=== PATIENT | male | born 1960 | race Caucasian/White ===

== ENCOUNTER 2020-11-21 18:00 | Inpatient (IN) ==
[2020-11-21] MEDS ORDERED: SODIUM CHLORIDE 0.9% 1000ML 1,000 ML IV SCH (19:00)
[2020-11-21 19:16] LABS: Basophils # (auto) 0.03 K/uL (0-0.2); Basophils % (auto) 0.3 %; Eosinophils # (auto) 0.07 K/uL (0-0.5); Eosinophils % (auto) 0.6 %; Hematocrit (blood only) 46.5 % (42-52); Hemoglobin 15.1 g/dL (14.0-18.0); Immature Granulocytes # (auto) 0.05 K/uL (0.00-0.02); Immature Granulocytes % (auto) 0.4 %; Lymphocytes # (auto) 2.03 K/uL (1.2-3.4); Lymphocytes % (auto) 17.9 %; Mean Corpuscular Hemoglobin 31.1 pg (25-34); Mean Corpuscular Hgb Conc 32.5 g/dL (32-36); Mean Corpuscular Volume 95.7 fL (80-100); Mean Platelet Volume 11.5 fL (7.4-10.4); Monocytes # (auto) 1.02 K/uL (0.11-0.59); Neutrophils # (auto) 8.16 K/uL (1.4-6.5); Neutrophils % (auto) 71.8 %; Platelet Count 385 K/uL (130-400); RDW Standard Deviation 49.7 fL (36.4-46.3); Red Blood Count 4.86 M/uL (4.7-6.1); White Blood Count 11.36 K/uL (4.8-10.8)
[2020-11-21] MEDS ORDERED: cefTRIAXone SODIUM 1,000 MG/50 ML BAG IV STA (19:18)
[2020-11-21] MEDS ORDERED: AZITHROMYCIN 500 MG in DEXTROSE 5% 250 ML IV STA (19:18)
--- NOTE | 2020-11-21 19:18 | Emergency Department Note ---
History of Present Illness General Chief complaint: Cough Stated complaint: COUGH, WEAK Time Seen by Provider: 11/21/20 18:41 History of Present Illness Maximum Pain Intensity: 7 60-year-old male presents to the ED with a chief complaint of a cough as well as some weakness and shortness of breath. He has had the symptoms for the past 10 or 11 days. He reports a dry cough. His symptoms are worse with exertion. He has not had any fevers. No nausea or vomiting. No specific contacts from Covid. Not vaccinated with Covid vaccine. Home Medications Medication Instructions Recorded Confirmed Type Aspirin (Aspirin *) 325 mg PO DAILY #0 08/21/09 History Cyanocobalamin (Vitamin B-12) 1,000 mcg PO DAILY #0 08/21/09 History Naproxen (Naprosyn) 500 mg PO BID #0 08/21/09 History OMEPRAZOLE (PRILOSEC) 20 mg PO DAILY #0 08/21/09 History Simvastatin (Zocor) 80 mg PO QPM #0 08/21/09 History ACETAMIN/ASA/CAFF 2 tabs PO Q6HR PRN #0 03/12/12 History DIVALPROEX SODIUM (Depakote 1,000 mg PO BID #0 tab 03/12/12 History Etended-Release) FLUOXETINE HCL (PROZAC) 40 mg PO BID #0 cap 03/12/12 History Allergies Allergy/AdvReac Type Severity Reaction Status Date / Time Sulfa (Sulfonamide Allergy Intermediate RASH Unverified 09/02/09 15:45 Antibiotics) Penicillins Allergy . Unverified 09/02/09 15:45 Past Med/Surg History Social History Smoking Status: Former smoker Tobacco Type: Cigarettes Feels Safe at Home: Yes Review of Systems A total of 10 systems reviewed and were otherwise negative Physical Exam Vital Signs Vital Signs - 24 hr 11/21/20 18:22 11/21/20 18:29 11/21/20 18:30 Temperature 36.8 C Temperature Source Temporal Artery Scan Pulse Rate 92 H Respiratory Rate 20 Blood Pressure 109/70 Blood Pressure Mean 83 Pulse Oximetry 84 L 89 L Oxygen Delivery Method Room Air Nasal Cannula Nasal Cannula Oxygen Flow Rate 3 4 Sepsis Recent Fever Within 48 Hours No Sepsis New/Unexplained Change in Mental Status N/A Sepsis Action Taken by Nursing No Action Required 11/21/20 19:03 Temperature Temperature Source Pulse Rate Respiratory Rate Blood Pressure Blood Pressure Mean Pulse Oximetry 93 Oxygen Delivery Method Oxymask Oxygen Flow Rate 6 Sepsis Recent Fever Within 48 Hours Sepsis New/Unexplained Change in Mental Status Sepsis Action Taken by Nursing CONSTITUTIONAL/VITAL SIGNS: Reviewed / noted above. GENERAL: Non-toxic in appearance. INTEGUMENTARY: Warm, dry, and [place]. HEAD: Normocephalic. EYES: without scleral icterus or trauma. ENT/OROPHARYNX: clear and slightly dry. LYMPHADENOPATHY/NECK: Is supple without lymphadenopathy or meningismus. RESPIRATORY: Clear to auscultation bilaterally. No increased work of breathing. CARDIOVASCULAR: Regular rate and rhythm. GI/ABDOMEN: Soft and nontender. No organomegaly or pulsatile mass. EXTREMITIES: Warm and well perfused. BACK: No CVA tenderness. NEUROLOGICAL: Intact without focal deficits. PSYCHIATRIC: normal affect. MUSCULOSKELETAL: Normally developed with good muscle tone. TRIAGE NURSING DOCUMENTATION REVIEWED. Course Administered Medications Discontinued Medications Dexamethasone Sodium Phosphate (DexamethasonePf 10 Mg/Ml Vial) 10 mg IV NOW ONE Stop: 11/21/20 19:20 Last Admin: 11/21/20 21:03 Dose: 10 mg Documented by: [id number] Sodium Chloride (Nss 1000ml) 1,000 mls @ 999 mls/hr IV .Q1H1M KACY Stop: 11/21/20 20:00 Last Admin: 11/21/20 21:02 Dose: 999 mls/hr Documented by: [id number] Ceftriaxone Sodium (Rocephin) 1,000 mg in 50 mls @ 100 mls/hr IV NOW STA Stop: 11/21/20 19:47 Last Admin: 11/21/20 21:02 Dose: 100 mls/hr Documented by: [id number] Ioversol (Optiray 320 125ml) 116 ml IV ONCE ONE Stop: 11/21/20 20:35 Last Admin: 11/21/20 20:35 Dose: 116 ml Documented by: [id number] Medical Decision Making Differential Diagnosis Differential includes acute coronary syndrome, myocardial infarction, CVA, TIA, anemia, infection, pneumonia, UTI, pyelonephritis, poor nutrition, dehydration, electrolyte disturbance,hypoglycemia. Medical Records Attestation: I reviewed the patient's medical records. Home Medications Current Medication List: was personally reviewed by me Laboratory Data Attestation: I reviewed the patient's lab results. Result diagrams: 11/21/20 18:43 11/21/20 18:43 Lab Results 11/21/20 11/21/20 11/21/20 Range/Units 18:43 18:43 18:43 WBC 11.36 H (4.8-10.8) K/uL RBC 4.86 (4.7-6.1) M/uL Hgb 15.1 (14.0-18.0) g/dL Hct 46.5 (42-52) % MCV 95.7 (80-100) fL MCH 31.1 (25-34) pg MCHC 32.5 (32-36) g/dL RDW Std Deviation 49.7 H (36.4-46.3) fL RDW Coeff of Laquita 14.0 (11.5-14.5) % Plt Count 385 (130-400) K/uL MPV 11.5 H (7.4-10.4) fL Immature Gran % (Auto) 0.4 % Neut % (Auto) 71.8 % Lymph % (Auto) 17.9 % [place] % (Auto) 9.0 % Eos % (Auto) 0.6 % Baso % (Auto) 0.3 % Neut # (Auto) 8.16 H (1.4-6.5) K/uL Lymph # (Auto) 2.03 (1.2-3.4) K/uL [place] # (Auto) 1.02 H (0.11-0.59) K/uL Eos # (Auto) 0.07 (0-0.5) K/uL Baso # (Auto) 0.03 (0-0.2) K/uL Immature Gran # (Auto) 0.05 H (0.00-0.02) K/uL PT 11.2 (9.0-12.0) Seconds INR 1.1 (0.9-1.1) APTT 30.8 (21.0-31.0) Seconds PTT Ratio 1.2 D-Dimer 1880 H* (0-500) ug/L FEU Sodium 138 (136-145) mmol/L Potassium 3.6 (3.5-5.1) mmol/L Chloride 101 (98-107) mmol/L Carbon Dioxide 30 (21-32) mmol/L Anion Gap 7.0 (3-11) BUN 16 (7-18) mg/dl Creatinine 1.30 (0.6-1.4) mg/dl Est Cr Clr Drug Dosing 72.2 ml/min Est GFR ( Amer) 68.7 ml/min Est GFR (Non-Af Amer) 59.3 ml/min BUN/Creatinine Ratio 12.0 (10-20) Glucose 98 (70-99) mg/dl Lactate (0.4-2.0) mmol/L Calcium 9.4 (8.5-10.1) mg/dl Total Bilirubin 1.1 H (0.2-1) mg/dl AST 65 H (15-37) U/L ALT 36 (12-78) U/L Alkaline Phosphatase 70 (45-117) U/L Troponin I < 0.015 (0-0.045) ng/ml NT-Pro-B Natriuret Pep 108 (0-900) pg/ml Total Protein 7.8 (6.4-8.2) gm/dl Albumin 2.6 L (3.4-5.0) gm/dl Globulin 5.2 H (2.5-4.0) gm/dl Albumin/Globulin Ratio 0.5 L (0.9-2) Procalcitonin (0-0.5) ng/ml Valproic Acid (50-100) mcg/ml COVID-19 Eval Order SARS-CoV-2 (PCR) (Negative) Influ A Molecular Assay (Negative) Influ B Molecular Assay (Negative) 11/21/20 11/21/20 11/21/20 Range/Units 18:43 18:48 18:48 WBC (4.8-10.8) K/uL RBC (4.7-6.1) M/uL Hgb (14.0-18.0) g/dL Hct (42-52) % MCV (80-100) fL MCH (25-34) pg MCHC (32-36) g/dL RDW Std Deviation (36.4-46.3) fL RDW Coeff of Laquita (11.5-14.5) % Plt Count (130-400) K/uL MPV (7.4-10.4) fL Immature Gran % (Auto) % Neut % (Auto) % Lymph % (Auto) % [place] % (Auto) % Eos % (Auto) % Baso % (Auto) % Neut # (Auto) (1.4-6.5) K/uL Lymph # (Auto) (1.2-3.4) K/uL [place] # (Auto) (0.11-0.59) K/uL Eos # (Auto) (0-0.5) K/uL Baso # (Auto) (0-0.2) K/uL Immature Gran # (Auto) (0.00-0.02) K/uL PT (9.0-12.0) Seconds INR (0.9-1.1) APTT (21.0-31.0) Seconds PTT Ratio D-Dimer (0-500) ug/L FEU Sodium (136-145) mmol/L Potassium (3.5-5.1) mmol/L Chloride (98-107) mmol/L Carbon Dioxide (21-32) mmol/L Anion Gap (3-11) BUN (7-18) mg/dl Creatinine (0.6-1.4) mg/dl Est Cr Clr Drug Dosing ml/min Est GFR ( Amer) ml/min Est GFR (Non-Af Amer) ml/min BUN/Creatinine Ratio (10-20) Glucose (70-99) mg/dl Lactate (0.4-2.0) mmol/L Calcium (8.5-10.1) mg/dl Total Bilirubin (0.2-1) mg/dl AST (15-37) U/L ALT (12-78) U/L Alkaline Phosphatase (45-117) U/L Troponin I (0-0.045) ng/ml NT-Pro-B Natriuret Pep (0-900) pg/ml Total Protein (6.4-8.2) gm/dl Albumin (3.4-5.0) gm/dl Globulin (2.5-4.0) gm/dl Albumin/Globulin Ratio (0.9-2) Procalcitonin 0.06 (0-0.5) ng/ml Valproic Acid (50-100) mcg/ml COVID-19 Eval Order Covid19 at [facility] SARS-CoV-2 (PCR) (Negative) Influ A Molecular Assay Negative (Negative) Influ B Molecular Assay Negative (Negative) 11/21/20 11/21/20 11/21/20 Range/Units 18:48 19:54 19:54 WBC (4.8-10.8) K/uL RBC (4.7-6.1) M/uL Hgb (14.0-18.0) g/dL Hct (42-52) % MCV (80-100) fL MCH (25-34) pg MCHC (32-36) g/dL RDW Std Deviation (36.4-46.3) fL RDW Coeff of Laquita (11.5-14.5) % Plt Count (130-400) K/uL MPV (7.4-10.4) fL Immature Gran % (Auto) % Neut % (Auto) % Lymph % (Auto) % [place] % (Auto) % Eos % (Auto) % Baso % (Auto) % Neut # (Auto) (1.4-6.5) K/uL Lymph # (Auto) (1.2-3.4) K/uL [place] # (Auto) (0.11-0.59) K/uL Eos # (Auto) (0-0.5) K/uL Baso # (Auto) (0-0.2) K/uL Immature Gran # (Auto) (0.00-0.02) K/uL PT (9.0-12.0) Seconds INR (0.9-1.1) APTT (21.0-31.0) Seconds PTT Ratio D-Dimer (0-500) ug/L FEU Sodium (136-145) mmol/L Potassium (3.5-5.1) mmol/L Chloride (98-107) mmol/L Carbon Dioxide (21-32) mmol/L Anion Gap (3-11) BUN (7-18) mg/dl Creatinine (0.6-1.4) mg/dl Est Cr Clr Drug Dosing ml/min Est GFR ( Amer) ml/min Est GFR (Non-Af Amer) ml/min BUN/Creatinine Ratio (10-20) Glucose (70-99) mg/dl Lactate 2.0 (0.4-2.0) mmol/L Calcium (8.5-10.1) mg/dl Total Bilirubin (0.2-1) mg/dl AST (15-37) U/L ALT (12-78) U/L Alkaline Phosphatase (45-117) U/L Troponin I (0-0.045) ng/ml NT-Pro-B Natriuret Pep (0-900) pg/ml Total Protein (6.4-8.2) gm/dl Albumin (3.4-5.0) gm/dl Globulin (2.5-4.0) gm/dl Albumin/Globulin Ratio (0.9-2) Procalcitonin (0-0.5) ng/ml Valproic Acid < 3 L (50-100) mcg/ml COVID-19 Eval Order SARS-CoV-2 (PCR) POSITIVE A* (Negative) Influ A Molecular Assay (Negative) Influ B Molecular Assay (Negative) Imaging Data Radiologist's Impression: Chest CTA 11/21/20 18:59 CT angio chest PE protocol INDICATION: MN ^Dyspnea . TECHNIQUE: Multidetector row helical CT of the chest was performed. Coronal and sagittal reformations were obtained. Automated dose lowering techniques and/or adjustment according to patient size were utilized for this exam. Comparison: None available at the time of this dictation. FINDINGS: Lungs and pleura: There are diffuse bilateral consolidative and round glass opacities. Heart and pericardium: Heart size is normal. No pericardial effusion. Vessels: No evidence of pulmonary embolism. Mediastinum and [place]: Enlarged mediastinal lymph nodes are seen measuring up to 13 mm in the precarinal station, 17 mm in the subcarinal station, and 10 mm in the aortopulmonary window. Chest wall and lower neck: Unremarkable. Abdomen: Unremarkable. Bones: Degenerative changes in the thoracic spine. IMPRESSION: 1. Multifocal consolidative and groundglass opacities in the bilateral lungs are concerning for pneumonia with or without an element of aspiration. 2. No pulmonary embolism. ACT 112: Negative or not required by law. Electronically signed by: Filiberto Marc M.D. 11/21/2020 8:49 PM Chest X-Ray 11/21/20 18:59 XR chest 1V portable INDICATION: MN ^Y ^Dyspnea . TECHNIQUE: Single frontal radiograph of the chest was obtained. Comparison: Comparison is made to chest one view 03/12/2012 FINDINGS: No lines and tubes are seen. The cardiomediastinal silhouette is normal. Multif ocal airspace opacities are seen most prominent in the right upper lung and left lower lung. No evidence of pleural effusion or pneumothorax. IMPRESSION: Bilateral airspace opacities are favored to represent pneumonia, although components of aspiration and/or atelectasis are also possible. ACT 112: Negative or not required by law. Electronically signed by: Filiberto Marc M.D. 11/21/2020 7:18 PM ECG Data Attestation: I personally reviewed and interpreted this ECG as follows: Additional Comments: Twelve-lead EKG: Per my interpretation shows a normal sinus rhythm at a rate of 80. No ST elevation. No PVCs. Normal QTC. MDM Narrative Patient presents to the ED with a chief complaint of weakness, cough and shortness of breath for the past 10 to 12 days. Denies any specific Covid contacts. He is asplenic since he was young. White blood cell count is 11.3. D-dimer is elevated. Metabolic panel was unremarkable. Troponin is negative. Procalcitonin is negative. BNP is normal. Lactic is normal. Flu swab was normal. Covid test is positive. Chest x-ray and CT scan showed bilateral pneumonia. The patient does require 6 L of oxygen via facemask to maintain normal oxygen saturations. He will be seen by the hospitalist for further patient evaluation and care. Impression & Plan 2019 novel coronavirus-infected pneumonia (NCIP) Discharge Plan Visit Data Chief Complaint: Cough Stated Complaint: COUGH, WEAK ED Provider: Harish Chua Discharge Problem: 2019 novel coronavirus-infected pneumonia (NCIP) Patient Disposition: Being Evaluated by Hospitalist Forms Stand Alone Forms: My [facility] [employer] Prescriptions Prescriptions: No Action Aspirin (Aspirin *) 325 MG tablet 325 mg PO DAILY Qty: 0 RF: 0 Cyanocobalamin (Vitamin B-12) 500 MCG tablet 1,000 mcg PO DAILY Qty: 0 RF: 0 Naproxen (Naprosyn) 500 MG tablet 500 mg PO BID Qty: 0 RF: 0 OMEPRAZOLE (PRILOSEC) 20 MG CONTR REL CAP 20 mg PO DAILY Qty: 0 RF: 0 Simvastatin (Zocor) 80 MG tablet 80 mg PO QPM Qty: 0 RF: 0 ACETAMIN/ASA/CAFF 2 tabs PO Q6HR PRN Qty: 0 RF: 0 DIVALPROEX SODIUM (Depakote Etended-Release) 500 MG [id number] 1,000 mg PO BID Qty: 0 RF: 0 FLUOXETINE HCL (PROZAC) 40 MG capsule 40 mg PO BID Qty: 0 RF: 0 Referrals Referrals: Kelvin Hayes MD [Primary Care Provider] -
[2020-11-21] MEDS ORDERED: dexAMETHasone**PF** 10 MG/ML VIAL IV ONE (19:19)
--- NOTE | 2020-11-21 19:20 | XRay Report ---
XR chest 1V portable INDICATION: MN ^Y ^Dyspnea . TECHNIQUE: Single frontal radiograph of the chest was obtained. Comparison: Comparison is made to chest one view 03/12/2012 FINDINGS: No lines and tubes are seen. The cardiomediastinal silhouette is normal. Multifocal airspace opacitie s are seen most prominent in the right upper lung and left lower lung. No evidence of pleural effusio n or pneumothorax. IMPRESSION: Bilateral airspace opacities are favored to represent pneumonia, although components of aspiration an d/or atelectasis are also possible. ACT 112: Negative or not required by law. Electronically signed by: Filiberto Marc M.D. 11/21/2020 7:18 PM
[2020-11-21 19:26] LABS: Influenza A virus by PCR Negative (Negative); Influenza B virus by PCR Negative (Negative)
[2020-11-21 19:28] LABS: INR 1.1 (0.9-1.1); Partial Thromboplastin Ratio 1.2; Partial Thromboplastin Time 30.8 Seconds (21.0-31.0); Prothrombin Time 11.2 Seconds (9.0-12.0)
[2020-11-21 19:35] LABS: Alanine Aminotransferase 36 U/L (12-78); Albumin Level 2.6 gm/dl (3.4-5.0); Aspartate Aminotransferase 65 U/L (15-37); Blood Urea Nitrogen 16 mg/dl (7-18); Calcium 9.4 mg/dl (8.5-10.1); Carbon Dioxide 30 mmol/L (21-32); Chloride 101 mmol/L (98-107); Creatinine Clr Calc Pharmacy 72.2 ml/min; Est GFR (African American) 68.7 ml/min; Est GFR (Non-African American) 59.3 ml/min; Glucose 98 mg/dl (70-99); Potassium 3.6 mmol/L (3.5-5.1); Sodium 138 mmol/L (136-145)
[2020-11-21 19:40] LABS: Albumin Globulin Ratio 0.5 (0.9-2); Alkaline Phosphatase 70 U/L (45-117); Bilirubin,Total 1.1 mg/dl (0.2-1); D Dimer 1880 ug/L FEU (0-500); Globulin 5.2 gm/dl (2.5-4.0); NT Pro B Type Natriuretic Pept 108 pg/ml (0-900); Total Protein 7.8 gm/dl (6.4-8.2); Troponin I < 0.015 ng/ml (0-0.045)
[2020-11-21] MEDS ORDERED: OPTIRAY 320 125ml IV ONE (20:34)
--- NOTE | 2020-11-21 20:50 | CT Scan Report ---
CT angio chest PE protocol INDICATION: MN ^Dyspnea . TECHNIQUE: Multidetector row helical CT of the chest was performed. Coronal and sagittal reformations were obtained. Automated dose lowering techniques and/or adjustment according to patient size were u tilized for this exam. Comparison: None available at the time of this dictation. FINDINGS: Lungs and pleura: There are diffuse bilateral consolidative and round glass opacities. Heart and pericardium: Heart size is normal. No pericardial effusion. Vessels: No evidence of pulmonary embolism. Mediastinum and [place]: Enlarged mediastinal lymph nodes are seen measuring up to 13 mm in the precarin al station, 17 mm in the subcarinal station, and 10 mm in the aortopulmonary window. Chest wall and lower neck: Unremarkable. Abdomen: Unremarkable. Bones: Degenerative changes in the thoracic spine. IMPRESSION: 1. Multifocal consolidative and groundglass opacities in the bilateral lungs are concerning for pneu monia with or without an element of aspiration. 2. No pulmonary embolism. ACT 112: Negative or not required by law. Electronically signed by: Filiberto Marc M.D. 11/21/2020 8:49 PM
--- NOTE | 2020-11-21 21:40 | History & Physical Report ---
Date of Service November 21, 2020 Assessment & Plan (1) 2019 novel coronavirus-infected pneumonia (NCIP): Plan: Multifocal pneumonia due to COVID-19 virus with hypoxia- Dexamethasone 6 mg IV every morning Ceftriaxone 1 g IV daily Azithromycin 5 mg IV daily Duonebs every 4 hours while awake and every 2 hours when necessary. Guaifenesin extended release 1200 mg p.o. twice daily Lovenox 45 mg subcu every 24 hours Vitamin D 1000 international units p.o. daily Zinc sulfate turn 20 mg p.o. daily Pulse ox on room air on presentation was 84% Patient is presently requiring oxygen mask 6 L/min with a pulse ox of 91% The patient is not a candidate for remdesivir due to time of presentation. Daytime team to discuss with pulmonology possibility of using monoclonal antibody treatment (2) Hypoxia: Plan: See above (3) Multifocal pneumonia: Plan: See above (4) Depression: Plan: Continue fluoxetine 20 mg daily (5) Seizure disorder: Plan: Continue levetiracetam 1000 mg twice daily (6) Hyperlipidemia: Plan: Continue simvastatin 80 mg in evening History of Present Illness Chief Complaint: The patient presents to the emergency department with complaint of persistent cough, progressive weakness and shortness of breath with dyspnea on exertion that began about 10 days ago. Primary Care Provider: Kelvin Hayes MD The patient is a 60-year-old male with a past medical history of seizure disorder, depression, and hyperlipidemia, who presents with the above symptoms. Work-up in the emergency department includes the following abnormal laboratories: WBC 11.36, AST 65, albumin 2.6, D-dimer 1880, creatinine 1.30. Patient was COVID-19 positive, and did not receive the COVID-19 vaccine. Chest x-ray showed multifocal pneumonia, worsened on the right. CT angiography PE protocol, shows no pulmonary embolism. Multifocal consolidative and groundglass opacities in the bilateral lungs concerning for pneumonia with or without an element of aspiration. The emergency department administered following medications: Dexamethasone 10 mg IV, ceftriaxone 1 g IV, azithromycin 500 mg IV, and normal saline 100 mils. Allergies Allergy/AdvReac Type Severity Reaction Status Date / Time Sulfa (Sulfonamide Allergy Intermediate RASH Unverified 11/21/20 21:40 Antibiotics) Penicillins Allergy . Unverified 11/21/20 21:40 Home Medications Medication Instructions Recorded Confirmed Type aspirin 325 mg tablet 325 mg PO DAILY 11/21/20 11/21/20 History fluoxetine 20 mg tablet 20 mg PO DAILY 11/21/20 11/21/20 History levetiracetam 500 mg tablet 1,000 mg PO BID 11/21/20 11/21/20 History simvastatin 80 mg tablet 80 mg PO PM 11/21/20 11/21/20 History Past Med/Surg History Medical History (Updated 11/22/20 @ 05:50 by Brandon Brown MD) Depression Hyperlipidemia Seizure disorder Social History Smoking Status: Former smoker Tobacco Type: Cigarettes Feels Safe at Home: Yes Review of Systems Review of Systems: The patient denies palpitations, lower extremity swelling, sore throat, fevers, chills, sweats, nausea, vomiting, diarrhea , constipation, abdominal pain, pelvic pain, blood in urine or stool, dysuria, urinary frequency or urgency, memory loss, loss of consciousness, rash, abnormal bruising or bleeding, imbalance, focal weakness, numbness or tingling in arms or legs, back or neck pa in, or night sweats. The review of systems is otherwise negative other than for that already noted above, and at least 10 systems have been reviewed. Physical Exam Physical Exam: The patient is awake, alert and oriented 3, normocephalic and atraumatic, sitting upright in bed, looks fatigued and in mild respiratory distress. HEENT--PERRL, EOMI, mucous membranes and oropharynx dry. Neck--supple. No JVD. No bruits. Thyroid normal, trachea midline, no adenopathy. Heart--normal S1 and S2. No murmurs, rubs or gallops. Lungs--coarse breath sounds bilaterally, right greater than left. Mild respiratory distress with accessory muscle use. Abdomen--normal bowel sounds and soft. Nontender. Nondistended, no hernias or masses, no organomegaly. Extremities--no cyanosis or clubbing. No edema. Dermatologic--normal skin turgor, normal color, no abnormal lymph nodes, no rash. Neurologic--cranial nerves II through XII grossly intact. Rheumatologic--normal range of motion. Psychiatric--normal affect. Results & Data Results & Data ([facility]) Vital Signs (Past 12 Hours) Vital Signs Temp Pulse Resp BP Pulse Ox 11/21/20 19:03 93 11/21/20 18:29 89 L 11/21/20 18:22 98.2 F 92 H 20 109/70 84 L Laboratory Results Laboratory Results WBC 11.36 K/uL (4.8-10.8) H 11/21/20 18:43 RBC 4.86 M/uL (4.7-6.1) 11/21/20 18:43 Hgb 15.1 g/dL (14.0-18.0) 11/21/20 18:43 Hct 46.5 % (42-52) 11/21/20 18:43 MCV 95.7 fL (80-100) 11/21/20 18:43 MCH 31.1 pg (25-34) 11/21/20 18:43 MCHC 32.5 g/dL (32-36) 11/21/20 18:43 RDW Std Deviation 49.7 fL (36.4-46.3) H 11/21/20 18:43 RDW Coeff of Laquita 14.0 % (11.5-14.5) 11/21/20 18:43 Plt Count 385 K/uL (130-400) 11/21/20 18:43 MPV 11.5 fL (7.4-10.4) H 11/21/20 18:43 Immature Gran % (Auto) 0.4 % 11/21/20 18:43 Neut % (Auto) 71.8 % 11/21/20 18:43 Lymph % (Auto) 17.9 % 11/21/20 18:43 [place] % (Auto) 9.0 % 11/21/20 18:43 Eos % (Auto) 0.6 % 11/21/20 18:43 Baso % (Auto) 0.3 % 11/21/20 18:43 Neut # (Auto) 8.16 K/uL (1.4-6.5) H 11/21/20 18:43 Lymph # (Auto) 2.03 K/uL (1.2-3.4) 11/21/20 18:43 [place] # (Auto) 1.02 K/uL (0.11-0.59) H 11/21/20 18:43 Eos # (Auto) 0.07 K/uL (0-0.5) 11/21/20 18:43 Baso # (Auto) 0.03 K/uL (0-0.2) 11/21/20 18:43 Immature Gran # (Auto) 0.05 K/uL (0.00-0.02) H 11/21/20 18:43 PT 11.2 Seconds (9.0-12.0) 11/21/20 18:43 INR 1.1 (0.9-1.1) 11/21/20 18:43 APTT 30.8 Seconds (21.0-31.0) 11/21/20 18:43 PTT Ratio 1.2 11/21/20 18:43 D-Dimer 1880 ug/L FEU (0-500) H* 11/21/20 18:43 Sodium 138 mmol/L (136-145) 11/21/20 18:43 Potassium 3.6 mmol/L (3.5-5.1) 11/21/20 18:43 Chloride 101 mmol/L (98-107) 11/21/20 18:43 Carbon Dioxide 30 mmol/L (21-32) 11/21/20 18:43 Anion Gap 7.0 (3-11) 11/21/20 18:43 BUN 16 mg/dl (7-18) 11/21/20 18:43 Creatinine 1.30 mg/dl (0.6-1.4) 11/21/20 18:43 Est Cr Clr Drug Dosing 72.2 ml/min 11/21/20 18:43 Est GFR ( Amer) 68.7 ml/min 11/21/20 18:43 Est GFR (Non-Af Amer) 59.3 ml/min 11/21/20 18:43 BUN/Creatinine Ratio 12.0 (10-20) 11/21/20 18:43 Glucose 98 mg/dl (70-99) 11/21/20 18:43 Lactate 2.0 mmol/L (0.4-2.0) 11/21/20 19:54 Calcium 9.4 mg/dl (8.5-10.1) 11/21/20 18:43 Total Bilirubin 1.1 mg/dl (0.2-1) H 11/21/20 18:43 AST 65 U/L (15-37) H 11/21/20 18:43 ALT 36 U/L (12-78) 11/21/20 18:43 Alkaline Phosphatase 70 U/L (45-117) 11/21/20 18:43 Troponin I < 0.015 ng/ml (0-0.045) 11/21/20 18:43 NT-Pro-B Natriuret Pep 108 pg/ml (0-900) 11/21/20 18:43 Total Protein 7.8 gm/dl (6.4-8.2) 11/21/20 18:43 Albumin 2.6 gm/dl (3.4-5.0) L 11/21/20 18:43 Globulin 5.2 gm/dl (2.5-4.0) H 11/21/20 18:43 Albumin/Globulin Ratio 0.5 (0.9-2) L 11/21/20 18:43 Procalcitonin 0.06 ng/ml (0-0.5) 11/21/20 18:43 Urine Color [place] 11/21/20 18:45 Urine Appearance Clear (Clear) 11/21/20 18:45 Urine pH 6.0 (4.5-7.5) 11/21/20 18:45 Ur Specific [place] 1.037 (1.000-1.030) H 11/21/20 18:45 Urine Protein 2+ (Negative) H 11/21/20 18:45 Urine Glucose (UA) Negative (Negative) 11/21/20 18:45 Urine Ketones 1+ (Negative) H 11/21/20 18:45 Urine Blood Negative (Negative) 11/21/20 18:45 Urine Nitrite Positive (Negative) A 11/21/20 18:45 Urine Bilirubin Negative (Negative) 11/21/20 18:45 Urine Urobilinogen Positive (Negative) H 11/21/20 18:45 Ur Leukocyte Esterase Trace (Negative) H 11/21/20 18:45 Urine WBC (Auto) 1-5 /hpf (0-5) 11/21/20 18:45 Urine RBC (Auto) 0-4 /hpf (0-4) 11/21/20 18:45 U Hyaline Cast (Auto) 1-5 /lpf (0-5) 11/21/20 18:45 U Epithel Cells (Auto) >30 /lpf (0-5) H 11/21/20 18:45 Urine Bacteria (Auto) Negative (Negative) 11/21/20 18:45 Valproic Acid < 3 mcg/ml (50-100) L 11/21/20 19:54 COVID-19 Eval Order Covid19 at [facility] 11/21/20 18:48 SARS-CoV-2 (PCR) POSITIVE (Negative) A* 11/21/20 18:48 Influ A Molecular Assay Negative (Negative) 11/21/20 18:48 Influ B Molecular Assay Negative (Negative) 11/21/20 18:48 Impressions Chest CTA 11/21/20 18:59 CT angio chest PE protocol INDICATION: MN ^Dyspnea . TECHNIQUE: Multidetector row helical CT of the chest was performed. Coronal and sagittal reformations were obtained. Automated dose lowering techniques and/or adjustment according to patient size were utilized for this exam. Comparison: None available at the time of this dictation. FINDINGS: Lungs and pleura: There are diffuse bilateral consolidative and round glass opacities. Heart and pericardium: Heart size is normal. No pericardial effusion. Vessels: No evidence of pulmonary embolism. Mediastinum and [place]: Enlarged mediastinal lymph nodes are seen measuring up to 13 mm in the precarinal station, 17 mm in the subcarinal station, and 10 mm in the aortopulmonary window. Chest wall and lower neck: Unremarkable. Abdomen: Unremarkable. Bones: Degenerative changes in the thoracic spine. IMPRESSION: 1. Multifocal consolidative and groundglass opacities in the bilateral lungs are concerning for pneumonia with or without an element of aspiration. 2. No pulmonary embolism. ACT 112: Negative or not required by law. Electronically signed by: Filiberto Marc M.D. 11/21/2020 8:49 PM Chest X-Ray 11/21/20 18:59 XR chest 1V portable INDICATION: MN ^Y ^Dyspnea . TECHNIQUE: Single frontal radiograph of the chest was obtained. Comparison: Comparison is made to chest one view 03/12/2012 FINDINGS: No lines and tubes are seen. The cardiomediastinal silhouette is normal. Multifocal airspace opacities are seen most prominent in the right upper lung and left lower lung. No evidence of pleural effusion or pneumothorax. IMPRESSION: Bilateral airspace opacities are favored to represent pneumonia, although components of aspiration and/or atelectasis are also possible. ACT 112: Negative or not required by law. Electronically signed by: Filiberto Marc M.D. 11/21/2020 7:18 PM Code Status & VTE Plan Code Status Full code VTE Prophylaxis Plan VTE Prophylaxis will be ordered: Yes PG Care Time/CCT Total # of Minutes Spent Total Time Spent with Patient: Total time spent is greater than 50% in coordination of care (as documented) at patient's floor/unit and/or counseling patient: Coding Level of Care Code 72691 Initial Inpt Care Lvl 3 Diagnoses Hypoxia R09.02 Multifocal pneumonia J18.9 Depression F32.9 Seizure disorder G40.909 Hyperlipidemia E78.5 2019 novel coronavirus-infected pneumonia (NCIP) U07.1; J12.82
[2020-11-21 22:15] LABS: Appearance Urine Clear (Clear); Bacteria Urine Automated Negative (Negative); Bilirubin Urine Negative (Negative); Blood Urine Negative (Negative); Color Urine Orange; Epithelial Cell Urine Auto >30 /lpf (0-5); Glucose Urine UA Negative (Negative); Ketones Urine 1+ (Negative); Leukocyte Esterase Urine Trace (Negative); Nitrite Urine Positive (Negative); Protein Urine 2+ (Negative); RBC Urine Automated 0-4 /hpf (0-4); Specific Gravity Urine 1.037 (1.000-1.030); Urobilinogen Urine Positive (Negative)
[2020-11-22] MEDS ORDERED: ENOXAPARIN 0.5 MG/KG SQ SCH (06:00)
[2020-11-22] MEDS ORDERED: ONDANSETRON INJ 2 MG/ML 2 ML VIAL IV PRN (06:01)
[2020-11-22] MEDS ORDERED: ACETAMINOPHEN 325 MG TAB PO PRN (06:01)
[2020-11-22] MEDS ORDERED: ENOXAPARIN INJ 40 MG/0.4 ML SYR SQ SCH (06:01)
[2020-11-22] MEDS ORDERED: ALBUT/IPRATROP 3MG/0.5MG NEB 3 ML VIAL NEB SCH (07:00)
[2020-11-22] MEDS ORDERED: BUTALBITAL/ASPIRIN/CAFFEINE 1 TAB TAB PO PRN (07:14)
[2020-11-22] MEDS: AZITHROMYCIN 500 MG in DEXTROSE 5% 250 ML IV SCH (08:21)
[2020-11-22] MEDS: ASPIRIN 325 MG ECTAB PO SCH (08:22)
[2020-11-22] MEDS: CYANOCOBALAMIN 500 MCG TABLET (VITAMIN B-12) PO SCH (08:22)
[2020-11-22] MEDS: CHOLECALCIFEROL 1,000 UNITS 25 MCG TAB PO SCH (08:23)
[2020-11-22] MEDS: guaiFENesin 600 MG TABCR PO SCH ×2 (08:34→20:07)
[2020-11-22] MEDS: FLUoxetine HCL 20 MG CAP PO SCH ×2 (08:34→20:07)
[2020-11-22] MEDS: ZINC SULFATE 220 MG CAPSULE PO SCH (08:34)
[2020-11-22] MEDS ORDERED: ENOXAPARIN INJ 60 MG/0.6 ML SYR SQ SCH (09:00)
[2020-11-22] MEDS ORDERED: ALBUT/IPRATROP 3MG/0.5MG NEB 3 ML VIAL NEB PRN (10:18)
[2020-11-22] MEDS: PANTOprazole 40 MG TAB PO SCH (10:36)
[2020-11-22] MEDS: DIVALPROEX EXTENDED RELEASE 500 MG TAB PO SCH ×2 (10:36→20:05)
--- NOTE | 2020-11-22 11:49 | Hospitalist Progress Note ---
Date of Service November 22, 2020 Assessment & Plan (1) 2019 novel coronavirus-infected pneumonia (NCIP): Plan: Multifocal pneumonia due to COVID-[address] chest with evidence of pneumonia breathing comfortably at rest, desaturates when he walks to toilet stable on 7L oxy mask, 96%, try to titrate down prone positioning, flutter valve, incentive spirometer Dexamethasone 6 mg IV every morning, day 2 Ceftriaxone 1 g IV daily x 5 days Azithromycin 500 mg IV daily x 5 days Duonebs PRN, no wheezing on exam Guaifenesin extended release 1200 mg p.o. twice daily Lovenox 45 mg subcu every 24 hours Vitamin D 1000 international units p.o. daily Zinc sulfate turn 20 mg p.o. daily (2) Hypoxia: Plan: acute hypoxic respiratory failure due to COVID pneumonia 7L right now prone positioning during the day and night (3) Multifocal pneumonia: Plan: dexamethasone antibiotics for 5 days (4) Depression: Plan: Continue fluoxetine 20 mg daily (5) Seizure disorder: Plan: Continue levetiracetam 1000 mg twice daily (6) Hyperlipidemia: Plan: Continue simvastatin 80 mg in evening Admission and Anticipated Discharge Date Admission Date: November 21, 2020 Subjective patient is about 10 days into illness, doing okay on 7L right now, 96%, breathing comfortably discussed importance of eating to maintain strength needs to lay prone for several hours a day and at night, he understands will utilize incentive spirometer and flutter valve reviewed chart, imaging, labs he says he has some dyspnea, dry cough denies chest pain, fever/chills, diarrhea, nausea says he has good energy Review of Systems Review of Systems: All systems reviewed & are unremarkable except as noted in Subjective Respiratory: + cough, + dyspnea and + dyspnea on exertion Cardiovascular: no chest pain and no edema Physical Exam Physical Exam: General: well developed, well nourished, no acute distress, comfortable Neck: supple, trachea midline, normal thyroid Lungs: clear to auscultation bilaterally, slightly tachypneic, no accessory muscle use, no distress Heart: regular S1 and S2, no murmur, peripheral pulses normal, capillary refill normal, no edema Abdomen: soft, NT, ND, + BS, no hepatomegaly, normal to percussion Extremities: normal in appearance, no cyanosis, no petechiae, strength is 5/5 bilaterally Neuro: awake, cooperative, moves all extremities, no focal motor deficits, CN II-XII intact, sensation in extremities intact, normal speech Skin: warm, dry, no rash, normal turgor Psych: Awake, alert oriented x 3, euthymic affect Results & Data Results & Data ([facility]) Vital Signs (Past 12 Hours) Vital Signs Temp Pulse Pulse Resp BP BP BP 11/22/20 11:37 36.4 C L 61 20 120/74 11/22/20 08:00 62 11/22/20 07:50 36.7 C 61 22 105/66 11/22/20 07:47 59 L 20 11/22/20 06:01 36.6 C 62 22 110/69 11/22/20 05:00 60 22 104/67 11/22/20 04:00 56 L 23 108/65 11/22/20 03:30 55 L 23 102/59 L 11/22/20 03:00 55 L 21 97/53 L 11/22/20 01:57 61 111/65 Pulse Ox Pulse Ox 11/22/20 11:37 96 11/22/20 08:00 11/22/20 07:50 94 11/22/20 07:47 95 11/22/20 06:01 92 11/22/20 05:00 91 11/22/20 04:00 94 11/22/20 03:30 95 11/22/20 03:00 93 11/22/20 01:57 91 Laboratory Results Laboratory Results - last 24 hr 11/21/20 11/21/20 11/21/20 18:43 18:43 18:43 WBC 11.36 H RBC 4.86 Hgb 15.1 Hct 46.5 MCV 95.7 MCH 31.1 MCHC 32.5 RDW Std Deviation 49.7 H RDW Coeff of Laquita 14.0 Plt Count 385 MPV 11.5 H Immature Gran % (Auto) 0.4 Neut % (Auto) 71.8 Lymph % (Auto) 17.9 [place] % (Auto) 9.0 Eos % (Auto) 0.6 Baso % (Auto) 0.3 Neut # (Auto) 8.16 H Lymph # (Auto) 2.03 [place] # (Auto) 1.02 H Eos # (Auto) 0.07 Baso # (Auto) 0.03 Immature Gran # (Auto) 0.05 H PT 11.2 INR 1.1 APTT 30.8 PTT Ratio 1.2 D-Dimer 1880 H* Sodium 138 Potassium 3.6 Chloride 101 Carbon Dioxide 30 Anion Gap 7.0 BUN 16 Creatinine 1.30 Est Cr Clr Drug Dosing 72.2 Est GFR ( Amer) 68.7 Est GFR (Non-Af Amer) 59.3 BUN/Creatinine Ratio 12.0 Glucose 98 Lactate Calcium 9.4 Total Bilirubin 1.1 H AST 65 H ALT 36 Alkaline Phosphatase 70 Troponin I < 0.015 NT-Pro-B Natriuret Pep 108 Total Protein 7.8 Albumin 2.6 L Globulin 5.2 H Albumin/Globulin Ratio 0.5 L Procalcitonin Urine Color Urine Appearance Urine pH Ur Specific [place] Urine Protein Urine Glucose (UA) Urine Ketones Urine Blood Urine Nitrite Urine Bilirubin Urine Urobilinogen Ur Leukocyte Esterase Urine WBC (Auto) Urine RBC (Auto) U Hyaline Cast (Auto) U Epithel Cells (Auto) Urine Bacteria (Auto) Valproic Acid COVID-19 Eval Order SARS-CoV-2 (PCR) Influ A Molecular Assay Influ B Molecular Assay 11/21/20 11/21/20 11/21/20 18:43 18:45 18:48 WBC RBC Hgb Hct MCV MCH MCHC RDW Std Deviation RDW Coeff of Laquita Plt Count MPV Immature Gran % (Auto) Neut % (Auto) Lymph % (Auto) [place] % (Auto) Eos % (Auto) Baso % (Auto) Neut # (Auto) Lymph # (Auto) [place] # (Auto) Eos # (Auto) Baso # (Auto) Immature Gran # (Auto) PT INR APTT PTT Ratio D-Dimer Sodium Potassium Chloride Carbon Dioxide Anion Gap BUN Creatinine Est Cr Clr Drug Dosing Est GFR ( Amer) Est GFR (Non-Af Amer) BUN/Creatinine Ratio Glucose Lactate Calcium Total Bilirubin AST ALT Alkaline Phosphatase Troponin I NT-Pro-B Natriuret Pep Total Protein Albumin Globulin Albumin/Globulin Ratio Procalcitonin 0.06 Urine Color [place] Urine Appearance Clear Urine pH 6.0 Ur Specific [place] 1.037 H Urine Protein 2+ H Urine Glucose (UA) Negative Urine Ketones 1+ H Urine Blood Negative Urine Nitrite Positive A Urine Bilirubin Negative Urine Urobilinogen Positive H Ur Leukocyte Esterase Trace H Urine WBC (Auto) 1-5 Urine RBC (Auto) 0-4 U Hyaline Cast (Auto) 1-5 U Epithel Cells (Auto) >30 H Urine Bacteria (Auto) Negative Valproic Acid COVID-19 Eval Order Covid19 at [facility] SARS-CoV-2 (PCR) Influ A Molecular Assay Influ B Molecular Assay 11/21/20 11/21/20 11/21/20 18:48 18:48 19:54 WBC RBC Hgb Hct MCV MCH MCHC RDW Std Deviation RDW Coeff of Laquita Plt Count MPV Immature Gran % (Auto) Neut % (Auto) Lymph % (Auto) [place] % (Auto) Eos % (Auto) Baso % (Auto) Neut # (Auto) Lymph # (Auto) [place] # (Auto) Eos # (Auto) Baso # (Auto) Immature Gran # (Auto) PT INR APTT PTT Ratio D-Dimer Sodium Potassium Chloride Carbon Dioxide Anion Gap BUN Creatinine Est Cr Clr Drug Dosing Est GFR ( Amer) Est GFR (Non-Af Amer) BUN/Creatinine Ratio Glucose Lactate Calcium Total Bilirubin AST ALT Alkaline Phosphatase Troponin I NT-Pro-B Natriuret Pep Total Protein Albumin Globulin Albumin/Globulin Ratio Procalcitonin Urine Color Urine Appearance Urine pH Ur Specific [place] Urine Protein Urine Glucose (UA) Urine Ketones Urine Blood Urine Nitrite Urine Bilirubin Urine Urobilinogen Ur Leukocyte Esterase Urine WBC (Auto) Urine RBC (Auto) U Hyaline Cast (Auto) U Epithel Cells (Auto) Urine Bacteria (Auto) Valproic Acid < 3 L COVID-19 Eval Order SARS-CoV-2 (PCR) POSITIVE A* Influ A Molecular Assay Negative Influ B Molecular Assay Negative 11/21/20 19:54 WBC RBC Hgb Hct MCV MCH MCHC RDW Std Deviation RDW Coeff of Laquita Plt Count MPV Immature Gran % (Auto) Neut % (Auto) Lymph % (Auto) [place] % (Auto) Eos % (Auto) Baso % (Auto) Neut # (Auto) Lymph # (Auto) [place] # (Auto) Eos # (Auto) Baso # (Auto) Immature Gran # (Auto) PT INR APTT PTT Ratio D-Dimer Sodium Potassium Chloride Carbon Dioxide Anion Gap BUN Creatinine Est Cr Clr Drug Dosing Est GFR ( Amer) Est GFR (Non-Af Amer) BUN/Creatinine Ratio Glucose Lactate 2.0 Calcium Total Bilirubin AST ALT Alkaline Phosphatase Troponin I NT-Pro-B Natriuret Pep Total Protein Albumin Globulin Albumin/Globulin Ratio Procalcitonin Urine Color Urine Appearance Urine pH Ur Specific [place] Urine Protein Urine Glucose (UA) Urine Ketones Urine Blood Urine Nitrite Urine Bilirubin Urine Urobilinogen Ur Leukocyte Esterase Urine WBC (Auto) Urine RBC (Auto) U Hyaline Cast (Auto) U Epithel Cells (Auto) Urine Bacteria (Auto) Valproic Acid COVID-19 Eval Order SARS-CoV-2 (PCR) Influ A Molecular Assay Influ B Molecular Assay Medications Administered Current Inpatient Medications Acetaminophen (Acetaminophen 325 Mg Tab) 650 mg PO Q4H PRN PRN Reason: Pain or Fever Stop: 12/22/20 06:00 Albuterol (Albut/Ipratrop 3mg/0.5mg Neb 3 Ml Vial) 3 ml NEB QIDR PRN PRN Reason: Shortness Of Breath Or Wheezing Stop: 12/22/20 06:59 Aspirin (Aspirin 325 Mg Ectab) 325 mg PO DAILY KACY Stop: 12/22/20 08:59 Last Admin: 11/22/20 08:22 Dose: 325 mg Documented by: Butalbital/Aspirin/Caffeine (Butalbital/Aspirin/Caffeine 1 Tab Tab) 2 tab PO Q6H PRN PRN Reason: Headache Stop: 12/22/20 07:13 Cyanocobalamin (Cyanocobalamin 500 Mcg Tablet (Vitamin B-12)) 1,000 mcg PO DAILY KACY Stop: 12/22/20 08:59 Last Admin: 11/22/20 08:22 Dose: 1,000 mcg Documented by: Divalproex Sodium (Divalproex Extended Release 500 Mg Tab) 1,000 mg PO BID KACY Stop: 12/22/20 08:59 Last Admin: 11/22/20 10:36 Dose: 1,000 mg Documented by: Enoxaparin Sodium (Enoxaparin Inj 60 Mg/0.6 Ml Syr) 45 mg SQ Q24H KACY Stop: 12/22/20 08:59 Last Admin: 11/22/20 08:34 Dose: 45 mg Documented by: Fluoxetine HCl (Fluoxetine Hcl 20 Mg Cap) 40 mg PO BID KACY Stop: 12/22/20 08:59 Last Admin: 11/22/20 08:34 Dose: 40 mg Documented by: Guaifenesin (Guaifenesin 600 Mg Tabcr) 1,200 mg PO Q12 KACY Stop: 12/22/20 08:59 Last Admin: 11/22/20 08:34 Dose: 1,200 mg Documented by: Dexamethasone 6 mg/ Syringe 1.5 mls @ 1 mls/min IV Q24H KACY Stop: 12/22/20 19:59 Azithromycin 500 mg/ Dextrose 255 mls @ 125 mls/hr IV DAILY KACY Stop: 11/29/20 08:59 Last Infusion: 11/22/20 10:51 Dose: Infused Documented by: Ceftriaxone Sodium 1,000 mg/ (Dextrose) 50 mls @ 100 mls/hr IV Q24H [facility]; Protocol Stop: 11/29/20 18:59 Ondansetron HCl (Ondansetron Inj 2 Mg/Ml 2 Ml Vial) 4 mg IV Q6H PRN PRN Reason: Nausea Stop: 12/22/20 06:00 Pantoprazole Sodium (Pantoprazole 40 Mg Tab) 40 mg PO DAILY KACY Stop: 12/22/20 08:59 Last Admin: 11/22/20 10:36 Dose: 40 mg Documented by: Simvastatin (Simvastatin 80 Mg Tab) 80 mg PO QPM [facility] Stop: 12/22/20 20:59 Vitamin D (Cholecalciferol 1,000 Units 25 Mcg Tab) 1,000 units PO QAM [facility] Stop: 12/22/20 08:59 Last Admin: 11/22/20 08:23 Dose: 1,000 units Documented by: Zinc Sulfate (Zinc Sulfate 220 Mg Capsule) 220 mg PO QAM KACY Stop: 12/22/20 08:59 Last Admin: 11/22/20 08:34 Dose: 220 mg Documented by: PG Care Time/CCT Total # of Minutes Spent Total Time Spent with Patient: Total time spent is greater than 50% in coordination of care (as documented) at patient's floor/unit and/or counseling patient: Coding Level of Care Code 65201 Subseq Hosp Care Lvl 2 Diagnoses 2019 novel coronavirus-infected pneumonia (NCIP) U07.1; J12.82 Hypoxia R09.02 Multifocal pneumonia J18.9 Depression F32.9 Seizure disorder G40.909 Hyperlipidemia E78.5
[2020-11-22] MEDS: cefTRIAXone SODIUM 1,000 MG in DEXTROSE 5% 50 ML IV SCH (20:05)
[2020-11-22] MEDS: SIMVASTATIN 80 MG TAB PO SCH (20:06)
[2020-11-22] MEDS: dexAMETHasone 6 MG in SYRINGE 0 ML IV SCH (20:07)
[2020-11-22] MEDS: ENOXAPARIN INJ 40 MG/0.4 ML SYR SQ SCH (20:09)
--- NOTE | 2020-11-22 22:18 | Electrocardiogram Report ---
Test Reason : Blood Pressure : / mmHG Vent. Rate : 079 BPM Atrial Rate : 079 BPM P-R Int : 134 ms QRS Dur : 094 ms QT Int : 384 ms P-R-T Axes : 035 019 008 degrees QTc Int : 440 ms Normal sinus rhythm Normal ECG When compared with ECG of 12-MAR-2012 22:46, No significant change was found Confirmed by Jarod Davis ([id number] on 11/22/2020 10:18:15 PM Referred By: REFERRED SELF Confirmed By:Jarod Davis
[2020-11-23 06:54] LABS: Basophils # (auto) 0.02 K/uL (0-0.2); Basophils % (auto) 0.1 %; Hematocrit (blood only) 43.3 % (42-52); Hemoglobin 14.1 g/dL (14.0-18.0); Immature Granulocytes # (auto) 0.09 K/uL (0.00-0.02); Immature Granulocytes % (auto) 0.6 %; Lymphocytes % (auto) 9.2 %; Mean Corpuscular Hemoglobin 30.5 pg (25-34); Mean Corpuscular Hgb Conc 32.6 g/dL (32-36); Mean Corpuscular Volume 93.7 fL (80-100); Mean Platelet Volume 11.5 fL (7.4-10.4); Monocytes # (auto) 0.68 K/uL (0.11-0.59); Monocytes % (auto) 4.2 %; Neutrophils % (auto) 85.9 %; Nucleated RBC # (auto) 0.02 K/uL (0-0); Nucleated RBC % (auto) 0.1 %; Platelet Count 495 K/uL (130-400); RDW Coefficient of Variation 13.8 % (11.5-14.5); RDW Standard Deviation 47.5 fL (36.4-46.3); Red Blood Count 4.62 M/uL (4.7-6.1); White Blood Count 16.29 K/uL (4.8-10.8)
[2020-11-23 07:18] LABS: Albumin Level 2.2 gm/dl (3.4-5.0); BUN Creatinine Ratio 19.1 (10-20); Calcium 8.9 mg/dl (8.5-10.1); Creatinine Clr Calc Pharmacy 80.9 ml/min; Est GFR (African American) 78.9 ml/min; Est GFR (Non-African American) 68.1 ml/min; Magnesium 2.4 mg/dl (1.8-2.4)
[2020-11-23 07:21] LABS: Albumin Globulin Ratio 0.4 (0.9-2); Bilirubin,Total 0.7 mg/dl (0.2-1); Total Protein 7.2 gm/dl (6.4-8.2)
[2020-11-23] MEDS ORDERED: FUROSEMIDE 40 MG/4 ML VIAL IV ONE (08:00)
[2020-11-23] MEDS ORDERED: FUROSEMIDE 20 MG in SYRINGE 0 ML IV ONE (08:00)
[2020-11-23] MEDS: guaiFENesin 600 MG TABCR PO SCH ×2 (08:25→20:32)
[2020-11-23] MEDS: AZITHROMYCIN 500 MG in DEXTROSE 5% 250 ML IV SCH (08:25)
[2020-11-23] MEDS: DIVALPROEX EXTENDED RELEASE 500 MG TAB PO SCH ×2 (08:25→20:31)
[2020-11-23] MEDS: CHOLECALCIFEROL 1,000 UNITS 25 MCG TAB PO SCH (08:25)
[2020-11-23] MEDS: ASPIRIN 325 MG ECTAB PO SCH (08:25)
[2020-11-23] MEDS: CYANOCOBALAMIN 500 MCG TABLET (VITAMIN B-12) PO SCH (08:25)
[2020-11-23] MEDS: FLUoxetine HCL 20 MG CAP PO SCH ×2 (08:25→20:30)
[2020-11-23] MEDS: PANTOprazole 40 MG TAB PO SCH (08:25)
[2020-11-23] MEDS: ZINC SULFATE 220 MG CAPSULE PO SCH (08:25)
[2020-11-23] MEDS: ENOXAPARIN INJ 40 MG/0.4 ML SYR SQ SCH ×2 (08:26→20:31)
--- NOTE | 2020-11-23 11:18 | Hospitalist Progress Note ---
Date of Service November 23, 2020 Assessment & Plan (1) 2019 novel coronavirus-infected pneumonia (NCIP): Plan: Multifocal pneumonia due to COVID-[address] chest with evidence of pneumonia breathing comfortably at rest, desaturates when he walks to toilet going up slightly on oxygen requirements, 10L oxy mask today this is expected, might need Vapotherm eventually prone positioning (not compliant, will lay on his side), flutter valve, incentive spirometer Dexamethasone 6 mg IV every morning, day 3 Ceftriaxone 1 g IV daily x 5 days, day 3 Azithromycin 500 mg IV daily x 5 days, day 3 Duonebs PRN, no wheezing on exam Guaifenesin extended release 1200 mg p.o. twice daily Lovenox 40 mg subcu every 12 hours Vitamin D 1000 international units p.o. daily Zinc sulfate turn 20 mg p.o. daily (2) Hypoxia: Plan: acute hypoxic respiratory failure due to COVID pneumonia 10L right now prone positioning during the day and night if he will comply suspect he will require more oxygen before he gets better, high flow if needed (3) Multifocal pneumonia: Plan: dexamethasone antibiotics for 5 days, day 3 (4) Depression: Plan: Continue fluoxetine 20 mg daily (5) Seizure disorder: Plan: Continue levetiracetam 1000 mg twice daily (6) Hyperlipidemia: Plan: Continue simvastatin 80 mg in evening Admission and Anticipated Discharge Date Admission Date: November 21, 2020 Subjective patient says he is feeling "maybe 15% better" he is up to 10L on the oxy mask encouraged him to lay prone, he says he can lay on his sides better, told him prone is the best eating well, making urine, had a BM yesterday labs this morning: WBC 16k, K is 4.0, Cr 1.1 Review of Systems Review of Systems: All systems reviewed & are unremarkable except as noted in Subjective Constitutional: no fever, no fatigue and no weakness Respiratory: + cough, + dyspnea and + dyspnea on exertion; no wheezing Cardiovascular: no chest pain, no palpitations and no edema Gastrointestinal: no abdominal pain, no nausea, no vomiting, no constipation and no diarrhea/loose stools Physical Exam Physical Exam: General: well developed, well nourished, no acute distress, comfortable Neck: supple, trachea midline, normal thyroid Lungs: clear to auscultation bilaterally, slightly tachypneic, belly breathing slightly, no distress Heart: regular S1 and S2, no murmur, peripheral pulses normal, capillary refill normal, no edema Abdomen: soft, NT, ND, + BS, no hepatomegaly, normal to percussion Extremities: normal in appearance, no cyanosis, no petechiae, strength is 5/5 bilaterally Neuro: awake, cooperative, moves all extremities, no focal motor deficits, CN II-XII intact, sensation in extremities intact, normal speech Skin: warm, dry, no rash, normal turgor Psych: Awake, alert oriented x 3, euthymic affect Results & Data Results & Data ([facility]) Vital Signs (Past 12 Hours) Vital Signs Temp Pulse Resp BP Pulse Ox 11/23/20 07:51 36.4 C L 71 25 H 94/62 L 91 11/23/20 03:41 36.4 C L 68 25 H 103/68 91 11/22/20 23:23 36.4 C L 63 19 126/72 96 Laboratory Results Laboratory Results - last 24 hr 11/23/20 11/23/20 06:19 06:19 WBC 16.29 H RBC 4.62 L Hgb 14.1 Hct 43.3 MCV 93.7 MCH 30.5 MCHC 32.6 RDW Std Deviation 47.5 H RDW Coeff of Laquita 13.8 Plt Count 495 H MPV 11.5 H Immature Gran % (Auto) 0.6 Neut % (Auto) 85.9 Lymph % (Auto) 9.2 [place] % (Auto) 4.2 Eos % (Auto) 0.0 Baso % (Auto) 0.1 Neut # (Auto) 14.00 H Lymph # (Auto) 1.50 [place] # (Auto) 0.68 H Eos # (Auto) 0.00 Baso # (Auto) 0.02 Immature Gran # (Auto) 0.09 H Absolute Nucleated RBC 0.02 H Nucleated RBC % (auto) 0.1 Sodium 138 Potassium 4.0 Chloride 104 Carbon Dioxide 25 Anion Gap 9.0 BUN 22 H Creatinine 1.16 Est Cr Clr Drug Dosing 80.9 Est GFR ( Amer) 78.9 Est GFR (Non-Af Amer) 68.1 BUN/Creatinine Ratio 19.1 Glucose 115 H Calcium 8.9 Magnesium 2.4 Total Bilirubin 0.7 AST 48 H ALT 39 Alkaline Phosphatase 64 Total Protein 7.2 Albumin 2.2 L Globulin 5.0 H Albumin/Globulin Ratio 0.4 L Medications Administered Current Inpatient Medications Acetaminophen (Acetaminophen 325 Mg Tab) 650 mg PO Q4H PRN PRN Reason: Pain or Fever Stop: 12/22/20 06:00 Albuterol (Albut/Ipratrop 3mg/0.5mg Neb 3 Ml Vial) 3 ml NEB QIDR PRN PRN Reason: Shortness Of Breath Or Wheezing Stop: 12/22/20 06:59 Aspirin (Aspirin 325 Mg Ectab) 325 mg PO DAILY [facility] Stop: 12/22/20 08:59 Last Admin: 11/23/20 08:25 Dose: 325 mg Documented by: Butalbital/Aspirin/Caffeine (Butalbital/Aspirin/Caffeine 1 Tab Tab) 2 tab PO Q6H PRN PRN Reason: Headache Stop: 12/22/20 07:13 Cyanocobalamin (Cyanocobalamin 500 Mcg Tablet (Vitamin B-12)) 1,000 mcg PO DAILY [facility] Stop: 12/22/20 08:59 Last Admin: 11/23/20 08:25 Dose: 1,000 mcg Documented by: Divalproex Sodium (Divalproex Extended Release 500 Mg Tab) 1,000 mg PO BID [facility] Stop: 12/22/20 08:59 Last Admin: 11/23/20 08:25 Dose: 1,000 mg Documented by: Enoxaparin Sodium (Enoxaparin Inj 40 Mg/0.4 Ml Syr) 40 mg SQ Q12 [facility] Stop: 12/22/20 20:59 Last Admin: 11/23/20 08:26 Dose: 40 mg Documented by: Fluoxetine HCl (Fluoxetine Hcl 20 Mg Cap) 40 mg PO BID [facility] Stop: 12/22/20 08:59 Last Admin: 11/23/20 08:25 Dose: 40 mg Documented by: Guaifenesin (Guaifenesin 600 Mg Tabcr) 1,200 mg PO Q12 [facility] Stop: 12/22/20 08:59 Last Admin: 11/23/20 08:25 Dose: 1,200 mg Documented by: Dexamethasone 6 mg/ Syringe 1.5 mls @ 1 mls/min IV Q24H [facility] Stop: 12/22/20 19:59 Last Admin: 11/22/20 20:07 Dose: 1 mls/min Documented by: Azithromycin 500 mg/ Dextrose 255 mls @ 125 mls/hr IV DAILY [facility] Stop: 11/29/20 08:59 Last Infusion: 11/23/20 10:46 Dose: Infused Documented by: Ceftriaxone Sodium 1,000 mg/ (Dextrose) 50 mls @ 100 mls/hr IV Q24H [facility]; Protocol Stop: 11/29/20 18:59 Last Infusion: 11/22/20 21:00 Dose: Infused Documented by: Ondansetron HCl (Ondansetron Inj 2 Mg/Ml 2 Ml Vial) 4 mg IV Q6H PRN PRN Reason: Nausea Stop: 12/22/20 06:00 Pantoprazole Sodium (Pantoprazole 40 Mg Tab) 40 mg PO DAILY [facility] Stop: 12/22/20 08:59 Last Admin: 11/23/20 08:25 Dose: 40 mg Documented by: Simvastatin (Simvastatin 80 Mg Tab) 80 mg PO QPM [facility] Stop: 12/22/20 20:59 Last Admin: 11/22/20 20:06 Dose: 80 mg Documented by: Vitamin D (Cholecalciferol 1,000 Units 25 Mcg Tab) 1,000 units PO QAM [facility] Stop: 12/22/20 08:59 Last Admin: 11/23/20 08:25 Dose: 1,000 units Documented by: Zinc Sulfate (Zinc Sulfate 220 Mg Capsule) 220 mg PO QAM [facility] Stop: 12/22/20 08:59 Last Admin: 11/23/20 08:25 Dose: 220 mg Documented by: PG Care Time/CCT Total # of Minutes Spent Total Time Spent with Patient: Total time spent is greater than 50% in coordination of care (as documented) at patient's floor/unit and/or counseling patient: Coding Level of Care Code 10483 Subseq Hosp Care Lvl 2 Diagnoses 2019 novel coronavirus-infected pneumonia (NCIP) U07.1; J12.82 Hypoxia R09.02 Multifocal pneumonia J18.9 Depression F32.9 Seizure disorder G40.909 Hyperlipidemia E78.5
[2020-11-23] MEDS: cefTRIAXone SODIUM 1,000 MG in DEXTROSE 5% 50 ML IV SCH (20:27)
[2020-11-23] MEDS: SIMVASTATIN 80 MG TAB PO SCH (20:30)
[2020-11-23] MEDS: dexAMETHasone 6 MG in SYRINGE 0 ML IV SCH (20:33)
[2020-11-24 06:39] LABS: Basophils # (auto) 0.01 K/uL (0-0.2); Basophils % (auto) 0.1 %; Hematocrit (blood only) 41.6 % (42-52); Hemoglobin 13.3 g/dL (14.0-18.0); Immature Granulocytes # (auto) 0.07 K/uL (0.00-0.02); Immature Granulocytes % (auto) 0.5 %; Lymphocytes % (auto) 9.1 %; Mean Corpuscular Hemoglobin 30.4 pg (25-34); Mean Platelet Volume 11.2 fL (7.4-10.4); Monocytes # (auto) 0.91 K/uL (0.11-0.59); Monocytes % (auto) 6.4 %; Neutrophils # (auto) 11.94 K/uL (1.4-6.5); Neutrophils % (auto) 83.9 %; Nucleated RBC # (auto) 0.02 K/uL (0-0); Nucleated RBC % (auto) 0.1 %; Platelet Count 620 K/uL (130-400); RDW Coefficient of Variation 13.9 % (11.5-14.5); RDW Standard Deviation 47.9 fL (36.4-46.3); Red Blood Count 4.38 M/uL (4.7-6.1); White Blood Count 14.23 K/uL (4.8-10.8)
[2020-11-24 07:23] LABS: Albumin Level 2.2 gm/dl (3.4-5.0); BUN Creatinine Ratio 18.7 (10-20); Calcium 8.9 mg/dl (8.5-10.1); Creatinine Clr Calc Pharmacy 83.1 ml/min; Est GFR (African American) 81.4 ml/min; Est GFR (Non-African American) 70.3 ml/min; Magnesium 2.6 mg/dl (1.8-2.4); Potassium 4.4 mmol/L (3.5-5.1)
[2020-11-24 07:26] LABS: Albumin Globulin Ratio 0.5 (0.9-2); Bilirubin,Total 0.6 mg/dl (0.2-1); C Reactive Protein 4.68 mg/dl (0-0.29); Globulin 4.6 gm/dl (2.5-4.0); Total Protein 6.8 gm/dl (6.4-8.2)
--- NOTE | 2020-11-24 08:41 | Hospitalist Progress Note ---
Date of Service November 24, 2020 Assessment & Plan (1) 2019 novel coronavirus-infected pneumonia (NCIP): Plan: Multifocal pneumonia due to COVID-[address] chest with evidence of pneumonia breathing comfortably at rest, desaturates when he walks to toilet stable the past two days 10L oxy mask this is expected, might need Vapotherm eventually but hopefully he will plateau with oxy mask prone positioning (not compliant, will lay on his side), flutter valve, incentive spirometer CRP 11/24 was 4, was not checked on admission so not sure if going down, can recheck in a few days Dexamethasone 6 mg IV every morning, day 4 Ceftriaxone 1 g IV daily x 5 days, day 4 Azithromycin 500 mg IV daily x 5 days, day 4 Duonebs PRN, no wheezing on exam Guaifenesin extended release 1200 mg p.o. twice daily Lovenox 40 mg subcu every 12 hours Vitamin D 1000 international units p.o. daily Zinc sulfate turn 20 mg p.o. daily (2) Hypoxia: Plan: acute hypoxic respiratory failure due to COVID pneumonia 10L the past 48 hours prone positioning during the day and night if he will comply suspect he will require more oxygen before he gets better, high flow if needed (3) Multifocal pneumonia: Plan: dexamethasone antibiotics for 5 days, day 4 (4) Depression: Plan: Continue fluoxetine 20 mg daily (5) Seizure disorder: Plan: Continue levetiracetam 1000 mg twice daily (6) Hyperlipidemia: Plan: Continue simvastatin 80 mg in evening Admission and Anticipated Discharge Date Admission Date: November 21, 2020 Subjective patient doing well, stable on 10L, no distress at all, minimal cough he desaturates with walking, moving eating well WBC 14k and Hb 13, Cr is 1.1 and K is 4.4 discussed that he will likely be in the hospital the rest of his week, he understands he said that he works out a lot at the gym, pushes cardio and lifting, told him that is definitely helping him in this situation Review of Systems Review of Systems: All systems reviewed & are unremarkable except as noted in Subjective Respiratory: + cough, + dyspnea and + dyspnea on exertion Physical Exam Physical Exam: General: well developed, well nourished, no acute distress, comfortable Neck: supple, trachea midline, normal thyroid Lungs: clear to auscultation bilaterally, slightly tachypneic, belly breathing slightly, no distress Heart: regular S1 and S2, no murmur, peripheral pulses normal, capillary refill normal, no edema Abdomen: soft, NT, ND, + BS, no hepatomegaly, normal to percussion Extremities: normal in appearance, no cyanosis, no petechiae, strength is 5/5 bilaterally Neuro: awake, cooperative, moves all extremities, no focal motor deficits, CN II-XII intact, sensation in extremities intact, normal speech Skin: warm, dry, no rash, normal turgor Psych: Awake, alert oriented x 3, euthymic affect Results & Data Results & Data ([facility]) Vital Signs (Past 12 Hours) Vital Signs Temp Pulse Pulse Resp BP Pulse Ox 11/24/20 06:45 60 11/24/20 03:44 36.5 C 67 16 99/55 L 90 11/23/20 23:55 36.9 C 60 18 120/68 90 Laboratory Results Laboratory Results - last 24 hr 11/24/20 11/24/20 06:00 06:00 WBC 14.23 H RBC 4.38 L Hgb 13.3 L Hct 41.6 L MCV 95.0 MCH 30.4 MCHC 32.0 RDW Std Deviation 47.9 H RDW Coeff of Laquita 13.9 Plt Count 620 H MPV 11.2 H Immature Gran % (Auto) 0.5 Neut % (Auto) 83.9 Lymph % (Auto) 9.1 [place] % (Auto) 6.4 Eos % (Auto) 0.0 Baso % (Auto) 0.1 Neut # (Auto) 11.94 H Lymph # (Auto) 1.30 [place] # (Auto) 0.91 H Eos # (Auto) 0.00 Baso # (Auto) 0.01 Immature Gran # (Auto) 0.07 H Absolute Nucleated RBC 0.02 H Nucleated RBC % (auto) 0.1 Sodium 139 Potassium 4.4 Chloride 105 Carbon Dioxide 28 Anion Gap 6.0 BUN 21 H Creatinine 1.13 Est Cr Clr Drug Dosing 83.1 Est GFR ( Amer) 81.4 Est GFR (Non-Af Amer) 70.3 BUN/Creatinine Ratio 18.7 Glucose 107 H Calcium 8.9 Magnesium 2.6 H Total Bilirubin 0.6 AST 35 ALT 32 Alkaline Phosphatase 60 C-Reactive Protein 4.68 H Total Protein 6.8 Albumin 2.2 L Globulin 4.6 H Albumin/Globulin Ratio 0.5 L Medications Administered Current Inpatient Medications Acetaminophen (Acetaminophen 325 Mg Tab) 650 mg PO Q4H PRN PRN Reason: Pain or Fever Stop: 12/22/20 06:00 Albuterol (Albut/Ipratrop 3mg/0.5mg Neb 3 Ml Vial) 3 ml NEB QIDR PRN PRN Reason: Shortness Of Breath Or Wheezing Stop: 12/22/20 06:59 Aspirin (Aspirin 325 Mg Ectab) 325 mg PO DAILY [facility] Stop: 12/22/20 08:59 Last Admin: 11/23/20 08:25 Dose: 325 mg Documented by: Butalbital/Aspirin/Caffeine (Butalbital/Aspirin/Caffeine 1 Tab Tab) 2 tab PO Q6H PRN PRN Reason: Headache Stop: 12/22/20 07:13 Cyanocobalamin (Cyanocobalamin 500 Mcg Tablet (Vitamin B-12)) 1,000 mcg PO DAILY [facility] Stop: 12/22/20 08:59 Last Admin: 11/23/20 08:25 Dose: 1,000 mcg Documented by: Divalproex Sodium (Divalproex Extended Release 500 Mg Tab) 1,000 mg PO BID [facility] Stop: 12/22/20 08:59 Last Admin: 11/23/20 20:31 Dose: 1,000 mg Documented by: Enoxaparin Sodium (Enoxaparin Inj 40 Mg/0.4 Ml Syr) 40 mg SQ Q12 [facility] Stop: 12/22/20 20:59 Last Admin: 11/23/20 20:31 Dose: 40 mg Documented by: Fluoxetine HCl (Fluoxetine Hcl 20 Mg Cap) 40 mg PO BID [facility] Stop: 12/22/20 08:59 Last Admin: 11/23/20 20:30 Dose: 40 mg Documented by: Guaifenesin (Guaifenesin 600 Mg Tabcr) 1,200 mg PO Q12 [facility] Stop: 12/22/20 08:59 Last Admin: 11/23/20 20:32 Dose: 1,200 mg Documented by: Dexamethasone 6 mg/ Syringe 1.5 mls @ 1 mls/min IV Q24H [facility] Stop: 12/22/20 19:59 Last Admin: 11/23/20 20:33 Dose: 1 mls/min Documented by: Azithromycin 500 mg/ Dextrose 255 mls @ 125 mls/hr IV DAILY [facility] Stop: 11/29/20 08:59 Last Infusion: 11/23/20 10:46 Dose: Infused Documented by: Ceftriaxone Sodium 1,000 mg/ (Dextrose) 50 mls @ 100 mls/hr IV Q24H [facility]; Protocol Stop: 11/29/20 18:59 Last Infusion: 11/23/20 21:35 Dose: Infused Documented by: Ondansetron HCl (Ondansetron Inj 2 Mg/Ml 2 Ml Vial) 4 mg IV Q6H PRN PRN Reason: Nausea Stop: 12/22/20 06:00 Pantoprazole Sodium (Pantoprazole 40 Mg Tab) 40 mg PO DAILY [facility] Stop: 12/22/20 08:59 Last Admin: 11/23/20 08:25 Dose: 40 mg Documented by: Simvastatin (Simvastatin 80 Mg Tab) 80 mg PO QPM [facility] Stop: 12/22/20 20:59 Last Admin: 11/23/20 20:30 Dose: 80 mg Documented by: Vitamin D (Cholecalciferol 1,000 Units 25 Mcg Tab) 1,000 units PO QAM [facility] Stop: 12/22/20 08:59 Last Admin: 11/23/20 08:25 Dose: 1,000 units Documented by: Zinc Sulfate (Zinc Sulfate 220 Mg Capsule) 220 mg PO QAM [facility] Stop: 12/22/20 08:59 Last Admin: 11/23/20 08:25 Dose: 220 mg Documented by: PG Care Time/CCT Total # of Minutes Spent Total Time Spent with Patient: Total time spent is greater than 50% in coordination of care (as documented) at patient's floor/unit and/or counseling patient: Coding Level of Care Code 50235 Subseq Hosp Care Lvl 2 Diagnoses 2019 novel coronavirus-infected pneumonia (NCIP) U07.1; J12.82 Hypoxia R09.02 Multifocal pneumonia J18.9 Depression F32.9 Seizure disorder G40.909 Hyperlipidemia E78.5
[2020-11-24] MEDS: CYANOCOBALAMIN 500 MCG TABLET (VITAMIN B-12) PO SCH (08:44)
[2020-11-24] MEDS: FLUoxetine HCL 20 MG CAP PO SCH ×2 (08:44→20:53)
[2020-11-24] MEDS: ZINC SULFATE 220 MG CAPSULE PO SCH (08:44)
[2020-11-24] MEDS: ASPIRIN 325 MG ECTAB PO SCH (08:44)
[2020-11-24] MEDS: PANTOprazole 40 MG TAB PO SCH (08:44)
[2020-11-24] MEDS: CHOLECALCIFEROL 1,000 UNITS 25 MCG TAB PO SCH (08:44)
[2020-11-24] MEDS: DIVALPROEX EXTENDED RELEASE 500 MG TAB PO SCH ×2 (08:44→20:53)
[2020-11-24] MEDS: guaiFENesin 600 MG TABCR PO SCH ×2 (08:44→20:52)
[2020-11-24] MEDS: ENOXAPARIN INJ 40 MG/0.4 ML SYR SQ SCH ×2 (08:44→20:52)
[2020-11-24] MEDS: AZITHROMYCIN 500 MG in DEXTROSE 5% 250 ML IV SCH (08:45)
--- NOTE | 2020-11-24 09:43 | XRay Report ---
XR chest 1V portable INDICATION: [place] ^Y ^covid pneumonia. TECHNIQUE: Single frontal radiograph of the chest was obtained. Comparison: None available at the time of this dictation. FINDINGS: No lines and tubes are seen. The cardiomediastinal silhouette is normal. Multifocal airspace opacitie s are again seen. No evidence of pleural effusion or pneumothorax. IMPRESSION: No significant interval change in multifocal airspace opacities in this patient with history of viral pneumonia. ACT 112: Negative or not required by law. Electronically signed by: Filiberto Marc M.D. 11/24/2020 9:41 AM
[2020-11-24] MEDS: cefTRIAXone SODIUM 1,000 MG in DEXTROSE 5% 50 ML IV SCH (20:51)
[2020-11-24] MEDS: SIMVASTATIN 80 MG TAB PO SCH (20:52)
[2020-11-24] MEDS: dexAMETHasone 6 MG in SYRINGE 0 ML IV SCH (20:53)
[2020-11-25 06:49] LABS: Basophils # (auto) 0.01 K/uL (0-0.2); Basophils % (auto) 0.1 %; Hematocrit (blood only) 41.5 % (42-52); Hemoglobin 13.3 g/dL (14.0-18.0); Immature Granulocytes # (auto) 0.09 K/uL (0.00-0.02); Immature Granulocytes % (auto) 0.7 %; Lymphocytes # (auto) 1.73 K/uL (1.2-3.4); Lymphocytes % (auto) 13.2 %; Mean Corpuscular Hemoglobin 30.5 pg (25-34); Mean Corpuscular Volume 95.2 fL (80-100); Mean Platelet Volume 11.5 fL (7.4-10.4); Monocytes # (auto) 0.97 K/uL (0.11-0.59); Monocytes % (auto) 7.4 %; Neutrophils # (auto) 10.33 K/uL (1.4-6.5); Neutrophils % (auto) 78.6 %; Platelet Count 629 K/uL (130-400); RDW Coefficient of Variation 13.9 % (11.5-14.5); RDW Standard Deviation 48.6 fL (36.4-46.3); Red Blood Count 4.36 M/uL (4.7-6.1); White Blood Count 13.13 K/uL (4.8-10.8)
[2020-11-25 07:21] LABS: Albumin Level 2.1 gm/dl (3.4-5.0); BUN Creatinine Ratio 16.4 (10-20); Calcium 9.1 mg/dl (8.5-10.1); Est GFR (African American) 93.3 ml/min; Est GFR (Non-African American) 80.5 ml/min; Magnesium 2.7 mg/dl (1.8-2.4); Potassium 4.4 mmol/L (3.5-5.1)
[2020-11-25 07:24] LABS: Albumin Globulin Ratio 0.5 (0.9-2); Bilirubin,Total 0.6 mg/dl (0.2-1); Globulin 4.6 gm/dl (2.5-4.0); Total Protein 6.7 gm/dl (6.4-8.2)
[2020-11-25] MEDS: ASPIRIN 325 MG ECTAB PO SCH (09:22)
[2020-11-25] MEDS: CHOLECALCIFEROL 1,000 UNITS 25 MCG TAB PO SCH (09:22)
[2020-11-25] MEDS: CYANOCOBALAMIN 500 MCG TABLET (VITAMIN B-12) PO SCH (09:22)
[2020-11-25] MEDS: AZITHROMYCIN 500 MG in DEXTROSE 5% 250 ML IV SCH (09:22)
[2020-11-25] MEDS: FLUoxetine HCL 20 MG CAP PO SCH ×2 (09:23→21:13)
[2020-11-25] MEDS: ENOXAPARIN INJ 40 MG/0.4 ML SYR SQ SCH ×2 (09:23→21:14)
[2020-11-25] MEDS: DIVALPROEX EXTENDED RELEASE 500 MG TAB PO SCH ×2 (09:23→21:15)
[2020-11-25] MEDS: PANTOprazole 40 MG TAB PO SCH (09:24)
[2020-11-25] MEDS: guaiFENesin 600 MG TABCR PO SCH ×2 (09:24→21:14)
[2020-11-25] MEDS: ZINC SULFATE 220 MG CAPSULE PO SCH (09:24)
[2020-11-25] MEDS: cefTRIAXone SODIUM 1,000 MG in DEXTROSE 5% 50 ML IV SCH (19:23)
[2020-11-25] MEDS: dexAMETHasone 6 MG in SYRINGE 0 ML IV SCH (19:25)
[2020-11-25] MEDS: SIMVASTATIN 80 MG TAB PO SCH (21:15)
--- NOTE | 2020-11-25 22:07 | Hospitalist Progress Note ---
Date of Service November 25, 2020 Assessment & Plan (1) 2019 novel coronavirus-infected pneumonia (NCIP): Plan: Multifocal pneumonia due to COVID-[address] chest with evidence of pneumonia breathing comfortably at rest, desaturates when he walks to toilet stable Now on 8 L nasal cannula this is expected, might need Vapotherm eventually prone positioning (not compliant, will lay on his side), flutter valve, incentive spirometer CRP 10/3 was 4, was not checked on admission so not sure if going down, can recheck in a few days Dexamethasone 6 mg IV every morning, day 5 Ceftriaxone 1 g IV daily x 5 days, day 5 Azithromycin 500 mg IV daily x 5 days, day 5 Duonebs PRN, no wheezing on exam Guaifenesin extended release 1200 mg p.o. twice daily Lovenox 40 mg subcu every 12 hours Vitamin D 1000 international units p.o. daily Zinc sulfate turn 20 mg p.o. daily (2) Hypoxia: Plan: acute hypoxic respiratory failure due to COVID pneumonia 8L now prone positioning during the day and night if he will comply (3) Multifocal pneumonia: Plan: dexamethasone antibiotics for 5 days, day 5 (4) Depression: Plan: Continue fluoxetine 20 mg daily (5) Seizure disorder: Plan: Continue levetiracetam 1000 mg twice daily (6) Hyperlipidemia: Plan: Continue simvastatin 80 mg in evening Admission and Anticipated Discharge Date Admission Date: November 21, 2020 Subjective Patient reports no new symptoms. He feels that he is improving each day. Review of Systems Review of Systems: All systems reviewed & are unremarkable except as noted in HPI & below Physical Exam Physical Exam: General: well developed, well nourished, no acute distress, comfortable Neck: supple, trachea midline, normal thyroid Lungs: clear to auscultation bilaterally, slightly tachypneic, belly breathing slightly, no distress Heart: regular S1 and S2, no murmur, peripheral pulses normal, capillary refill normal, no edema Abdomen: soft, NT, ND, + BS, no hepatomegaly, normal to percussion Extremities: normal in appearance, no cyanosis, no petechiae, strength is 5/5 bilaterally Neuro: awake, cooperative, moves all extremities, no focal motor deficits, CN II-XII intact, sensation in extremities intact, normal speech Skin: warm, dry, no rash, normal turgor Psych: Awake, alert oriented x 3, euthymic affect Results & Data Results & Data ([facility]) Vital Signs (Past 12 Hours) Vital Signs Temp Pulse Resp BP Pulse Ox 11/25/20 20:01 36.8 C 63 20 114/73 92 11/25/20 16:14 36.8 C 64 20 113/75 95 11/25/20 11:20 36.8 C 64 18 114/60 94 PG Care Time/CCT Total # of Minutes Spent Total Time Spent with Patient: Total time spent is greater than 50% in coordination of care (as documented) at patient's floor/unit and/or counseling patient: Coding Level of Care Code 70255 Subseq Hosp Care Lvl 3 Diagnoses 2019 novel coronavirus-infected pneumonia (NCIP) U07.1; J12.82 Hypoxia R09.02 Multifocal pneumonia J18.9 Depression F32.9 Seizure disorder G40.909 Hyperlipidemia E78.5 Time Spent (min) 35
[2020-11-26 07:29] LABS: Hematocrit (blood only) 42.7 % (42-52); Hemoglobin 13.6 g/dL (14.0-18.0); Mean Corpuscular Hemoglobin 30.8 pg (25-34); Mean Corpuscular Hgb Conc 31.9 g/dL (32-36); Mean Corpuscular Volume 96.8 fL (80-100); Mean Platelet Volume 10.8 fL (7.4-10.4); Platelet Count 664 K/uL (130-400); RDW Coefficient of Variation 13.8 % (11.5-14.5); RDW Standard Deviation 49.5 fL (36.4-46.3); Red Blood Count 4.41 M/uL (4.7-6.1); White Blood Count 13.26 K/uL (4.8-10.8)
[2020-11-26 08:07] LABS: BUN Creatinine Ratio 17.1 (10-20); Calcium 9.2 mg/dl (8.5-10.1); Creatinine Clr Calc Pharmacy 88.6 ml/min; Est GFR (Non-African American) 75.9 ml/min; Potassium 4.4 mmol/L (3.5-5.1)
[2020-11-26] MEDS: FLUoxetine HCL 20 MG CAP PO SCH ×2 (08:47→20:38)
[2020-11-26] MEDS: guaiFENesin 600 MG TABCR PO SCH ×2 (08:47→20:39)
[2020-11-26] MEDS: DIVALPROEX EXTENDED RELEASE 500 MG TAB PO SCH ×2 (08:47→20:38)
[2020-11-26] MEDS: CYANOCOBALAMIN 500 MCG TABLET (VITAMIN B-12) PO SCH (08:47)
[2020-11-26] MEDS: CHOLECALCIFEROL 1,000 UNITS 25 MCG TAB PO SCH (08:47)
[2020-11-26] MEDS: ZINC SULFATE 220 MG CAPSULE PO SCH (08:47)
[2020-11-26] MEDS: ENOXAPARIN INJ 40 MG/0.4 ML SYR SQ SCH ×2 (08:48→20:37)
[2020-11-26] MEDS: PANTOprazole 40 MG TAB PO SCH (08:48)
[2020-11-26] MEDS: ASPIRIN 325 MG ECTAB PO SCH (08:48)
[2020-11-26] MEDS: AZITHROMYCIN 500 MG in DEXTROSE 5% 250 ML IV SCH (08:59)
[2020-11-26] MEDS: cefTRIAXone SODIUM 1,000 MG in DEXTROSE 5% 50 ML IV SCH (18:16)
--- NOTE | 2020-11-26 20:09 | Hospitalist Progress Note ---
Date of Service November 26, 2020 Assessment & Plan (1) 2019 novel coronavirus-infected pneumonia (NCIP): Plan: Multifocal pneumonia due to COVID-[address] chest with evidence of pneumonia breathing comfortably at rest, desaturates when he walks to toilet stable Now on 8 L nasal cannula this is expected, might need Vapotherm eventually prone positioning (not compliant, will lay on his side), flutter valve, incentive spirometer CRP 10/3 was 4, was not checked on admission so not sure if going down, can recheck in a few days Dexamethasone 6 mg IV every morning, day 6 Ceftriaxone 1 g IV daily x 5 days, completed Azithromycin 500 mg IV daily x 5 days, completed Duonebs PRN, no wheezing on exam Guaifenesin extended release 1200 mg p.o. twice daily Lovenox 40 mg subcu every 12 hours Vitamin D 1000 international units p.o. daily Zinc sulfate turn 20 mg p.o. daily Patient reports he is willing to prone. Patient continues to require 6-7 L NC. Patient however is stable. (2) Hypoxia: Plan: acute hypoxic respiratory failure due to COVID pneumonia 8L now prone positioning during the day and night if he will comply (3) Multifocal pneumonia: Plan: dexamethasone antibiotics for 5 days, day 5 (4) Depression: Plan: Continue fluoxetine 20 mg daily (5) Seizure disorder: Plan: Continue levetiracetam 1000 mg twice daily (6) Hyperlipidemia: Plan: Continue simvastatin 80 mg in evening Admission and Anticipated Discharge Date Admission Date: November 21, 2020 Subjective Patient reports no new complaints. Review of Systems Review of Systems: All systems reviewed & are unremarkable except as noted in HPI & below Physical Exam Physical Exam: General: well developed, well nourished, no acute distress, comfortable Neck: supple, trachea midline, normal thyroid Lungs: clear to auscultation bilaterally, slightly tachypneic, belly breathing slightly, no distress Heart: regular S1 and S2, no murmur, peripheral pulses normal, capillary refill normal, no edema Abdomen: soft, NT, ND, + BS, no hepatomegaly, normal to percussion Extremities: normal in appearance, no cyanosis, no petechiae, strength is 5/5 bilaterally Neuro: awake, cooperative, moves all extremities, no focal motor deficits, CN II-XII intact, sensation in extremities intact, normal speech Skin: warm, dry, no rash, normal turgor Psych: Awake, alert oriented x 3, euthymic affect Results & Data Results & Data ([facility]) Vital Signs (Past 12 Hours) Vital Signs Temp Pulse Pulse Resp BP BP Pulse Ox 11/26/20 16:54 63 11/26/20 16:12 37.1 C 60 18 100/76 93 11/26/20 11:28 36.6 C 62 20 96/63 L 92 PG Care Time/CCT Total # of Minutes Spent Total Time Spent with Patient: Total time spent is greater than 50% in coordination of care (as documented) at patient's floor/unit and/or counseling patient: Coding Level of Care Code 93639 Subseq Hosp Care Lvl 2 Diagnoses 2019 novel coronavirus-infected pneumonia (NCIP) U07.1; J12.82 Hypoxia R09.02 Multifocal pneumonia J18.9 Depression F32.9 Seizure disorder G40.909 Hyperlipidemia E78.5 Time Spent (min) 25
[2020-11-26] MEDS: SIMVASTATIN 80 MG TAB PO SCH (20:38)
[2020-11-26] MEDS: dexAMETHasone 6 MG in SYRINGE 0 ML IV SCH (20:38)
[2020-11-27 06:31] LABS: Hemoglobin 13.7 g/dL (14.0-18.0); Mean Corpuscular Hemoglobin 30.8 pg (25-34); Mean Corpuscular Hgb Conc 31.9 g/dL (32-36); Mean Corpuscular Volume 96.6 fL (80-100); Mean Platelet Volume 10.6 fL (7.4-10.4); Platelet Count 691 K/uL (130-400); RDW Coefficient of Variation 13.9 % (11.5-14.5); RDW Standard Deviation 49.5 fL (36.4-46.3); Red Blood Count 4.45 M/uL (4.7-6.1); White Blood Count 12.19 K/uL (4.8-10.8)
[2020-11-27 07:08] LABS: Albumin Level 2.1 gm/dl (3.4-5.0); Aspartate Aminotransferase 39 U/L (15-37); BUN Creatinine Ratio 18.4 (10-20); Blood Urea Nitrogen 22 mg/dl (7-18); C Reactive Protein 1.02 mg/dl (0-0.29); Calcium 9.2 mg/dl (8.5-10.1); Carbon Dioxide 28 mmol/L (21-32); Chloride 106 mmol/L (98-107); Creatinine Clr Calc Pharmacy 79.6 ml/min; Est GFR (African American) 77.3 ml/min; Est GFR (Non-African American) 66.7 ml/min; Glucose 99 mg/dl (70-99); Potassium 4.8 mmol/L (3.5-5.1); Sodium 139 mmol/L (136-145)
[2020-11-27 07:14] LABS: Alanine Aminotransferase 36 U/L (12-78); Alkaline Phosphatase 54 U/L (45-117); Bilirubin Direct < 0.1 mg/dl (0-0.2); Bilirubin,Total 0.7 mg/dl (0.2-1); Total Protein 6.3 gm/dl (6.4-8.2)
[2020-11-27] MEDS: ENOXAPARIN INJ 40 MG/0.4 ML SYR SQ SCH ×2 (08:32→20:47)
[2020-11-27] MEDS: ZINC SULFATE 220 MG CAPSULE PO SCH (08:32)
[2020-11-27] MEDS: AZITHROMYCIN 500 MG in DEXTROSE 5% 250 ML IV SCH (08:32)
[2020-11-27] MEDS: PANTOprazole 40 MG TAB PO SCH (08:33)
[2020-11-27] MEDS: FLUoxetine HCL 20 MG CAP PO SCH ×2 (08:33→20:48)
[2020-11-27] MEDS: DIVALPROEX EXTENDED RELEASE 500 MG TAB PO SCH ×2 (08:33→20:47)
[2020-11-27] MEDS: CYANOCOBALAMIN 500 MCG TABLET (VITAMIN B-12) PO SCH (08:33)
[2020-11-27] MEDS: ASPIRIN 325 MG ECTAB PO SCH (08:33)
[2020-11-27] MEDS: guaiFENesin 600 MG TABCR PO SCH ×2 (08:33→20:47)
[2020-11-27] MEDS: CHOLECALCIFEROL 1,000 UNITS 25 MCG TAB PO SCH (08:33)
[2020-11-27] MEDS: cefTRIAXone SODIUM 1,000 MG in DEXTROSE 5% 50 ML IV SCH (18:28)
--- NOTE | 2020-11-27 20:47 | Hospitalist Progress Note ---
Date of Service November 27, 2020 Assessment & Plan (1) 2019 novel coronavirus-infected pneumonia (NCIP): Plan: Multifocal pneumonia due to COVID-[address] chest with evidence of pneumonia breathing comfortably at rest, desaturates when he walks to toilet stable Now on 8 L nasal cannula this is expected, might need Vapotherm eventually prone positioning (not compliant, will lay on his side), flutter valve, incentive spirometer CRP 11/24 was 4, was not checked on admission so not sure if going down, can recheck in a few days Dexamethasone 6 mg IV every morning, day 6 Ceftriaxone 1 g IV daily x 5 days, completed Azithromycin 500 mg IV daily x 5 days, completed Duonebs PRN, no wheezing on exam Guaifenesin extended release 1200 mg p.o. twice daily Lovenox 40 mg subcu every 12 hours Vitamin D 1000 international units p.o. daily Zinc sulfate turn 20 mg p.o. daily Patient reports he is willing to prone. Patient now on 3 L NC. Patient however is stable. will monitor for another 24 hours likekly discharge soon. (2) Hypoxia: Plan: acute hypoxic respiratory failure due to COVID pneumonia 8L now prone positioning during the day and night if he will comply (3) Multifocal pneumonia: Plan: dexamethasone antibiotics for 5 days, day 5 (4) Depression: Plan: Continue fluoxetine 20 mg daily (5) Seizure disorder: Plan: Continue levetiracetam 1000 mg twice daily (6) Hyperlipidemia: Plan: Continue simvastatin 80 mg in evening Admission and Anticipated Discharge Date Admission Date: November 21, 2020 Subjective 60 yo male is feeling better. Review of Systems Review of Systems: The patient denies palpitations, lower extremity swelling, sore throat, fevers, chills, sweats, nausea, vomiting, diarrhea , constipation, abdominal pain, pelvic pain, blood in urine or stool, dysuria, urinary frequency or urgency, memory loss, loss of consciousness, rash, abnormal bruising or bleeding, imbalance, focal weakness, numbness or tingling in arms or legs, back or neck pain, or night sweats. The review of systems is otherwise negative other than for that already noted above, and at least 10 systems have been reviewed. Physical Exam Physical Exam: General: well developed, well nourished, no acute distress, comfortable Neck: supple, trachea midline, normal thyroid Lungs: clear to auscultation bilaterally, slightly tachypneic, belly breathing slightly, no distress Heart: regular S1 and S2, no murmur, peripheral pulses normal, capillary refill normal, no edema Abdomen: soft, NT, ND, + BS, no hepatomegaly, normal to percussion Extremities: normal in appearance, no cyanosis, no petechiae, strength is 5/5 bilaterally Neuro: awake, cooperative, moves all extremities, no focal motor deficits, CN II-XII intact, sensation in extremities intact, normal speech Skin: warm, dry, no rash, normal turgor Psych: Awake, alert oriented x 3, euthymic affect Results & Data Results & Data ([facility]) Vital Signs (Past 12 Hours) Vital Signs Temp Pulse Resp BP BP Pulse Ox 11/27/20 19:30 36.8 C 71 20 91/68 L 93 11/27/20 15:27 36.6 C 64 19 106/69 91 11/27/20 11:35 36.8 C 60 16 98/60 L 92 PG Care Time/CCT Total # of Minutes Spent Total Time Spent with Patient: Total time spent is greater than 50% in coordination of care (as documented) at patient's floor/unit and/or counseling patient: Coding Level of Care Code 22309 Subseq Hosp Care Lvl 2 Diagnoses 2019 novel coronavirus-infected pneumonia (NCIP) U07.1; J12.82 Hypoxia R09.02 Multifocal pneumonia J18.9 Depression F32.9 Seizure disorder G40.909 Hyperlipidemia E78.5
[2020-11-27] MEDS: SIMVASTATIN 80 MG TAB PO SCH (20:48)
[2020-11-27] MEDS: dexAMETHasone 6 MG in SYRINGE 0 ML IV SCH (20:48)
[2020-11-28] MEDS: guaiFENesin 600 MG TABCR PO SCH ×2 (09:05→20:59)
[2020-11-28] MEDS: AZITHROMYCIN 500 MG in DEXTROSE 5% 250 ML IV SCH (09:05)
[2020-11-28] MEDS: PANTOprazole 40 MG TAB PO SCH (09:05)
[2020-11-28] MEDS: CYANOCOBALAMIN 500 MCG TABLET (VITAMIN B-12) PO SCH (09:06)
[2020-11-28] MEDS: ZINC SULFATE 220 MG CAPSULE PO SCH (09:06)
[2020-11-28] MEDS: DIVALPROEX EXTENDED RELEASE 500 MG TAB PO SCH ×2 (09:06→20:59)
[2020-11-28] MEDS: CHOLECALCIFEROL 1,000 UNITS 25 MCG TAB PO SCH (09:06)
[2020-11-28] MEDS: FLUoxetine HCL 20 MG CAP PO SCH ×2 (09:07→21:00)
[2020-11-28] MEDS: ASPIRIN 325 MG ECTAB PO SCH (09:07)
[2020-11-28] MEDS: ENOXAPARIN INJ 40 MG/0.4 ML SYR SQ SCH ×2 (09:07→21:00)
--- NOTE | 2020-11-28 10:36 | Hospitalist Progress Note ---
Date of Service November 28, 2020 Assessment & Plan (1) 2019 novel coronavirus-infected pneumonia (NCIP): Plan: Multifocal pneumonia due to COVID-[address] chest with evidence of pneumonia breathing comfortably at rest, desaturates when he walks to toilet prone positioning (not compliant, will lay on his side), flutter valve, incentive spirometer CRP 10/3 was 4, was not checked on admission so not sure if going down, can recheck in a few days Dexamethasone 6 mg IV every morning, day 6 Ceftriaxone 1 g IV daily x 5 days, completed Azithromycin 500 mg IV daily x 5 days, completed Duonebs PRN, no wheezing on exam Guaifenesin extended release 1200 mg p.o. twice daily Lovenox 40 mg subcu every 12 hours Vitamin D 1000 international units p.o. daily Zinc sulfate turn 20 mg p.o. daily Patient reports he is willing to prone. Patient now on 3 L NC. Patient however is stable. will discharge in AM after 2 step/. (2) Hypoxia: Plan: acute hypoxic respiratory failure due to COVID pneumonia 8L now prone positioning during the day and night if he will comply (3) Multifocal pneumonia: Plan: dexamethasone antibiotics for 5 days, day 5 (4) Depression: Plan: Continue fluoxetine 20 mg daily (5) Seizure disorder: Plan: Patient reports history of ischemic stroke. Patient has been on 325 mg of aspirin for years. Will decrease to 81 mg a day. D/W patient who is agreeable. Risk of bleeding is higher with higher doses of aspirin, but studies have shown same effect of secondary stroke prevention. Continue levetiracetam 1000 mg twice daily (6) Hyperlipidemia: Plan: Continue simvastatin 80 mg in evening Admission and Anticipated Discharge Date Admission Date: November 21, 2020 Subjective Patient reports feeling better. Review of Systems Review of Systems: All systems reviewed & are unremarkable except as noted in HPI & below Physical Exam Physical Exam: General: well developed, well nourished, no acute distress, comfortable Neck: supple, trachea midline, normal thyroid Lungs: clear to auscultation bilaterally, slightly tachypneic, belly breathing slightly, no distress Heart: regular S1 and S2, no murmur, peripheral pulses normal, capillary refill normal, no edema Abdomen: soft, NT, ND, + BS, no hepatomegaly, normal to percussion Extremities: normal in appearance, no cyanosis, no petechiae, strength is 5/5 bilaterally Neuro: awake, cooperative, moves all extremities, no focal motor deficits, CN II-XII intact, sensation in extremities intact, normal speech Skin: warm, dry, no rash, normal turgor Psych: Awake, alert oriented x 3, euthymic affect Results & Data Results & Data ([facility]) Vital Signs (Past 12 Hours) Vital Signs Temp Pulse Resp BP BP Pulse Ox 11/28/20 07:43 36.8 C 60 16 114/60 92 11/28/20 03:31 36.5 C 61 16 111/67 93 11/27/20 23:45 106/59 L 11/27/20 23:30 36.8 C 64 18 86/58 L 95 PG Care Time/CCT Total # of Minutes Spent Total Time Spent with Patient: Total time spent is greater than 50% in coordination of care (as documented) at patient's floor/unit and/or counseling patient: Coding Level of Care Code 22316 Subseq Hosp Care Lvl 2 Diagnoses 2019 novel coronavirus-infected pneumonia (NCIP) U07.1; J12.82 Hypoxia R09.02 Multifocal pneumonia J18.9 Depression F32.9 Seizure disorder G40.909 Hyperlipidemia E78.5 Time Spent (min) 25
[2020-11-28] MEDS: cefTRIAXone SODIUM 1,000 MG in DEXTROSE 5% 50 ML IV SCH (18:25)
[2020-11-28] MEDS: SIMVASTATIN 80 MG TAB PO SCH (20:59)
[2020-11-28] MEDS: dexAMETHasone 6 MG in SYRINGE 0 ML IV SCH (21:34)
[2020-11-29] MEDS ORDERED: ASPIRIN 81 MG ECTAB PO SCH (09:00)
[2020-11-29] MEDS: PANTOprazole 40 MG TAB PO SCH (09:16)
[2020-11-29] MEDS: ZINC SULFATE 220 MG CAPSULE PO SCH (09:16)
[2020-11-29] MEDS: DIVALPROEX EXTENDED RELEASE 500 MG TAB PO SCH (09:17)
[2020-11-29] MEDS: CYANOCOBALAMIN 500 MCG TABLET (VITAMIN B-12) PO SCH (09:17)
[2020-11-29] MEDS: CHOLECALCIFEROL 1,000 UNITS 25 MCG TAB PO SCH (09:17)
[2020-11-29] MEDS: guaiFENesin 600 MG TABCR PO SCH (09:17)
[2020-11-29] MEDS: ENOXAPARIN INJ 40 MG/0.4 ML SYR SQ SCH (09:17)
[2020-11-29] MEDS: FLUoxetine HCL 20 MG CAP PO SCH (09:17)
--- NOTE | 2020-12-01 07:20 | Discharge Summary ---
Date of Service November 29, 2020 Admission HPI Per Admitting Provider The patient is a 60-year-old male with a past medical history of seizure disorder, depression, and hyperlipidemia, who presents with the above symptoms. Work-up in the emergency department includes the following abnormal laboratories: WBC 11.36, AST 65, albumin 2.6, D-dimer 1880, creatinine 1.30. Patient was COVID-19 positive, and did not receive the COVID-19 vaccine. Chest x-ray showed multifocal pneumonia, worsened on the right. CT angiography PE protocol, shows no pulmonary embolism. Multifocal consolidative and groundglass opacities in the bilateral lungs concerning for pneumonia with or without an element of aspiration. The emergency department administered following medications: Dexamethasone 10 mg IV, ceftriaxone 1 g IV, azithromycin 500 mg IV, and normal saline 100 mils. Principal Diagnosis COVID 19 [place] Discharge Exam General: well developed, well nourished, no acute distress, comfortable Neck: supple, trachea midline, normal thyroid Lungs: clear to auscultation bilaterally, slightly tachypneic, belly breathing slightly, no distress Heart: regular S1 and S2, no murmur, peripheral pulses normal, capillary refill normal, no edema Abdomen: soft, NT, ND, + BS, no hepatomegaly, normal to percussion Extremities: normal in appearance, no cyanosis, no petechiae, strength is 5/5 bilaterally Neuro: awake, cooperative, moves all extremities, no focal motor deficits, CN II-XII intact, sensation in extremities intact, normal speech Skin: warm, dry, no rash, normal turgor Psych: Awake, alert oriented x 3, euthymic affect Discharge Data Allergies Allergy/AdvReac Type Severity Reaction Status Date / Time Sulfa (Sulfonamide Allergy Intermediate RASH Unverified 11/21/20 21:40 Antibiotics) Penicillins Allergy . Unverified 11/21/20 21:40 Consultations 11/21/20 21:02 ED Decision to Admit Stat Ordered Studies 11/21/20 18:59 CT angio chest PE protocol Stat Hospital Course (1) 2019 novel coronavirus-infected pneumonia (NCIP): Multifocal pneumonia due to COVID-[address] chest with evidence of pneumonia breathing comfortably at rest, desaturates when he walks to toilet prone positioning (not compliant, will lay on his side), flutter valve, incentive spirometer CRP 10/3 was 4, was not checked on admission so not sure if going down, can recheck in a few days Dexamethasone 6 mg IV every morning, day 6 Ceftriaxone 1 g IV daily x 5 days, completed Azithromycin 500 mg IV daily x 5 days, completed Duonebs PRN, no wheezing on exam Guaifenesin extended release 1200 mg p.o. twice daily Lovenox 40 mg subcu every 12 hours Vitamin D 1000 international units p.o. daily Zinc sulfate turn 20 mg p.o. daily Patient reports he is willing to prone. Patient now on 3 L NC. Patient however is stable. On day of discharge, patient will be discharged on appropriate oxygen supplementation as determined by his 2 step. (2) Hypoxia: acute hypoxic respiratory failure due to COVID pneumonia 8L now prone positioning during the day and night if he will comply (3) Multifocal pneumonia: dexamethasone antibiotics for 5 days, day 5 (4) Depression: Continue fluoxetine 20 mg daily (5) Seizure disorder: Patient reports history of ischemic stroke. Patient has been on 325 mg of aspirin for years. Will decrease to 81 mg a day. D/W patient who is agreeable. Risk of bleeding is higher with higher doses of aspirin, but studies have shown same effect of secondary stroke prevention. Continue levetiracetam 1000 mg twice daily (6) Hyperlipidemia: Continue simvastatin 80 mg in evening Total Time Total Time Spent Total Time Spent (In Minutes): 32 Discharge Plan Discharge Items Patient Disposition: Home - Self-Care Reason For Visit: COVID-19/SECONDARY BACTERIAL PNEUMONIAS WITH HYPOX Discharge Diagnosis: COVID 19 with hypoxia. Activity: Resume your previous activity Non-emergency contact: Primary Care Provider Call non-emergency contact if: you have any medication questions Diet: Heart Healthy Addtl Attending Provider Instructions: You have been hospitalized for an acute medical problem. During your stay at [facility], we have made an effort to correct the problem that brought you to the hospital while keeping you as comfortable as possible. Medications were used to bring your condition under control and your discharge instructions will include directions for any medications you should take after leaving the hospital. Please make sure you see your Primary Care Provider as part of your follow up plan. You are recovering from COVID 19. Thankfully your oxygen level has improved. You will require 2 liters nasal cannula on ambulation. You will need to continue with dexamethasone for 2 additional days in the evening. I also recommended more vitamins for you in the short term and to continue with protonix for stomach protection. However, you should resume your regular medications that you were taking at home. I also recommend cutting back on your aspirin. Pending Studies at Discharge: No Stand-Alone Forms: My [facility], Smoking Cessation Medications and DC Order Prescriptions: New aspirin 81 mg Tablet,Delayed Release (Dr/Ec) 81 mg PO QAM Qty: 30 RF: 0 cyanocobalamin (vitamin B-12) 500 mcg Tablet 1,000 mcg PO DAILY Qty: 30 RF: 0 pantoprazole 40 mg Tablet,Delayed Release (Dr/Ec) 40 mg PO DAILY Qty: 30 RF: 0 cholecalciferol (vitamin D3) 25 mcg (1,000 unit) Capsule 1,000 unit PO QAM Qty: 30 RF: 0 guaifenesin [Mucinex] 600 mg Tablet Extended Release 12hr 1,200 mg PO Q12 Qty: 28 RF: 0 dexamethasone 6 mg tablet 6 mg PO DAILY Qty: 2 RF: 0 Continued levetiracetam 500 mg tablet 1,000 mg PO BID RF: 0 simvastatin 80 mg Tablet 80 mg PO PM RF: 0 fluoxetine 20 mg Tablet 20 mg PO DAILY RF: 0 Discontinued aspirin 325 mg Tablet 325 mg PO DAILY RF: 0 Discharge Orders: Discharge Order (Routine); Ordered 11/29/20 Ordered By: Fred Rice/Other Patient Handouts: Ann-Marieing COVID-19, Using Oxygen Safely, Using an Oxygen Tank at Home Admission Data Admit Date/Time: 11/21/20 21:39 Attending Provider: Fred Jansen Admit Provider: Brandon Brown Primary Care Provider: Kelvin Hayes Other Providers: [facility] ; Brandon Brown Other Interventions: Discharge Summary Assessment (RN) Last Done: 11/29/20 14:07 Coding Level of Care Code D/C DAY MANAGEMENT >30 MINS Diagnoses 2019 novel coronavirus-infected pneumonia (NCIP) U07.1; J12.82 Hypoxia R09.02 Multifocal pneumonia J18.9 Depression F32.9 Seizure disorder G40.909 Hyperlipidemia E78.5
== END 2020-11-29 15:35 | disposition home or self-care (01) | DRG 177 ==
LOC: ED 18:00 → SUATTDRO 21:39 → 2E 21:39 → 3W 11-28 10:14